=== PATIENT | female | born 1935 | race Caucasian/White ===

== ENCOUNTER 2017-02-21 11:45 | Emergency (ER) | payer MEDICARE ==
[2017-02-21] MEDS ORDERED: Ondansetron 4 MG Tab.DIS PO ONE (12:14)
--- NOTE | 2017-02-21 12:22 | EDM.PDOC ---
ED HPI GENERAL MEDICAL PROBLEM - General Chief Complaint: Head Injury Stated Complaint: FALL Time Seen by Provider: 02/21/17 12:10 Source of Information: Reports: Patient, EMS, Family History Limitations: Reports: No Limitations - History of Present Illness INITIAL COMMENTS - FREE TEXT/NARRATIVE: 81-year-old female was getting out of a chair when she tripped over some oxygen tubing and fell forward hitting her face on a carpeted floor. She was stunned and possibly even lost consciousness for a second or two according to her son. She then was acting "in and out". He called the ambulance after she vomited, she was alert and oriented, stable when EMS arrived but she did have another emesis in route to the hospital. She is not complaining of any pain but just doesn't feel good. She has no external evidence of injury such as abrasion, hematoma or bleeding. She has no complaints of pain of the extremities, neck or back. She is holding an emesis bag because of persistent nausea. Onset: Sudden Duration: Hour(s): (Within the last 1-2 hours) Location: Reports: Head Severity: Moderate Associated Symptoms: Reports: Confusion (Mild), Nausea/Vomiting. 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 Denies: Fever, Chills HEENT: Denies: Vision Change Respiratory: Denies: Shortness of Breath Cardiovascular: Denies: Palpitations, Syncope GI/Abdominal: Reports: Constipation (Intermittent constipation problems), Nausea , Vomiting : Reports: No Symptoms 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: Denies: Neck Pain, Back Pain Skin: Denies: Bruising Neurological: Denies: Headache ED EXAM, HEAD INJURY - Physical Exam Exam: See Below Exam Limited By: No Limitations General Appearance: Alert, No Apparent Distress (Looks uncomfortable because of nausea but not distressed) Head: Atraumatic (I find no evidence of trauma such as abrasion, swelling or hematoma, no direct tender areas) Eyes: Bilateral Eye: EOMI Neck: Non-Tender Respiratory: No Respiratory Distress GI/Abdominal Exam: Soft, Non-Tender Extremities: Normal Inspection Neurologic: No Motor/Sensory Deficits, Oriented x 3 Skin: Normal Color, Warm/Dry - [place] Coma Score Best Eye Response ([place]): (4) Open Spontaneously Best Verbal Response ([place]): (5) Oriented Best Motor Response ([place]): (6) Obeys Commands Course - Vital Signs Last Recorded V/S: Last Vital Signs Temp 96.8 F 02/21/17 12:00 Pulse 62 02/21/17 12:00 Resp 20 02/21/17 12:00 BP 142/69 H 02/21/17 12:00 Pulse Ox 99 02/21/17 12:00 - Orders/Labs/Meds Meds: Medications Discontinued Medications Generic Name Dose Route Start Last Admin Trade Name Lexie PRN Reason Stop Dose Admin Ondansetron HCl 4 mg 02/21/17 12:14 02/21/17 12:17 Zofran Odt PO 02/21/17 12:15 4 mg ONETIME ONE Administration - Re-Assessments/Exams Free Text/Narrative Re-Assessment/Exam: 02/21/17 12:22 4 mg of sublingual Zofran was given, and the patient was sent back for a non- contrast enhanced head CT. 02/21/17 13:[address] was normal. Her nausea slowly improved, she was observed for an additional half hour. 02/21/17 13:19 Patient was able to ambulate with assistance. I encouraged her to use her walker when she is home. Departure - Departure Time of Disposition: 13:30 Disposition: Home, Self-Care 01 Condition: Good Clinical Impression: Concussion with no loss of consciousness - Discharge Information Instructions: Concussion, Adult, [id number] Referrals: Kevin Ravi NP [Primary Care Provider] - Forms: ED Department Discharge Care Plan Goals: Continue your regular medications, no new medications are needed. Increase activity as tolerated and return if worsening or concerns.
--- NOTE | 2017-02-21 12:54 | CT ---
Head wo Cont INDICATION: head injury, vomiting Total DLP 618 COMPARISON: None FINDINGS: No acute intracranial hemorrhage, mass, or edema. Generalized cerebral and cerebellar volum e loss. Patchy low attenuation in the periventricular and subcortical deep white matter is nonspecifi c, but most compatible with chronic small-vessel ischemic changes. Normal variant mild prominence of the paired internal cerebral veins. Remainder unremarkable. IMPRESSION: No acute intracranial abnormality.
== END 2017-02-21 13:34 | disposition home or self-care (01) ==
LOC: JP.ED 11:45
DX: S06.0X0A Concussion without loss of consciousness, initial encounter (principal); Z79.899 Other long term (current) drug therapy; Z79.82 Long term (current) use of aspirin; W01.0XXA Fall on same level from slipping, tripping and stumbling without subsequent striking against object, initial encounter
CPT/HCPCS: 70450; 99284; A9270

== ENCOUNTER 2017-05-15 17:51 | Observation (INO) | payer MEDICARE ==
--- NOTE | 2017-05-15 17:58 | EDM.PDOC ---
<OfficerClovis - Last Filed: 05/15/17 18:17> ED HPI GENERAL MEDICAL PROBLEM - General Chief Complaint: Head Injury Stated Complaint: ACCIDENT VIS NORTH Time Seen by Provider: 05/15/17 17:53 Source of Information: Reports: Patient, RN Notes Reviewed History Limitations: Reports: No Limitations - History of Present Illness INITIAL COMMENTS - FREE TEXT/NARRATIVE: 81-year-old female presents emergency department today following a loss of consciousness at home, she did slip on her deck fell forward hitting her head family member estimates she was unresponsive for approximately 2 minutes brought in by EMS services at this time she is complaining of headache but has a GCS of 15 no other complaints Right Frontal Head Pain Score (Numeric/FACES): 4 - Related Data Allergies Allergy/AdvReac Type Severity Reaction Status Date / Time No Known Allergies Allergy Verified 02/21/17 12:05 Home Meds: Home Meds Anastrozole [Arimidex] 1 mg PO DAILY 02/21/17 [History] Aspirin [Halfprin] 81 mg PO DAILY 02/21/17 [History] Losartan [Cozaar] 50 mg PO DAILY 02/21/17 [History] Metoprolol Succinate [Toprol XL] 50 mg PO DAILY 02/21/17 [History] amLODIPine [Norvasc] 5 mg PO DAILY 02/21/17 [History] Past Medical History HEENT History: Reports: Impaired Vision [employer]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 History: Reports: Fracture Oncologic (Cancer) History: Reports: Breast - Infectious Disease History Infectious Disease History: Reports: Chicken Pox Social & Family History - Tobacco Use Smoking Status *Q: Never Smoker - Caffeine Use Caffeine Use: Reports: Coffee - Recreational Drug Use Recreational Drug Use: No ED ROS GENERAL - Review of Systems Review Of Systems: See Below Constitutional: Reports: No Symptoms HEENT: Reports: No Symptoms Respiratory: Reports: No Symptoms Cardiovascular: Reports: Syncope (Has had some syncope couple weeks ago) GI/Abdominal: Reports: No Symptoms : Reports: No Symptoms 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: Reports: No Symptoms Skin: Reports: No Symptoms Neurological: Reports: Headache ED EXAM, HEAD INJURY - Physical Exam Exam: See Below Text/Narrative:: Primary survey GCS of 15 airway is open patent clear lungs are clear to auscultation bilaterally and cardiovascular demonstrates regular rate and rhythm S1-S2 Secondary survey General: Elderly female, not in any distress, GCS of 15, alert and oriented x3 HEENT: head is ecchymosis and edema appreciated frontal region of the scalp right side approximately size of a golf ball it is tender to the touch normocephalic, eyes pupils equal round reactive to light, sclera clear no conjunctivitis appreciated. Ears tympanic membranes clear and tyler landmarks and light reflex are present bilaterally canals are clear. Nose no septal deviation, nares are clear, no blood present. Mouth mucosa is moist and pink no erythema or exudate noted in soft palate, tongue is midline uvula is midline , dentures in place. Neck: Supple no thyromegaly no tracheal deviation. There is no tenderness to palpation spinally or paraspinally full range of motion neck without tenderness Nodes: Cervical nodes subclavicular nodes nontender no palpable lymphadenopathy noted. Lungs: clear to auscultation bilaterally with symmetrical respirations, no adventitious noise appreciated. CV: Regular rate and rhythm S1 and S2 appreciated no murmurs rubs or gallops noted. Abdomen: Soft, nontender, no palpable masses or organomegaly appreciated, no distention no guarding bowel sounds are present, Neuro: Cranial nerves II through XII grossly intact Skin: Warm and dry, intact Extremities: No lower extremity edema appreciated, pedal pulse is +2. Pelvic rock's is negative there is no tenderness to shoulders elbows wrists bilaterally knees ankles bilaterally. Back exam no tenderness spinally or paraspinally no bruising noted Course - Vital Signs Last Recorded V/S: Last Vital Signs Temp 95.7 F 05/15/17 17:58 Pulse 61 05/15/17 19:27 Resp 16 05/15/17 19:27 BP 153/57 H 05/15/17 19:27 Pulse Ox 100 05/15/17 19:27 - Orders/Labs/Meds Orders: Active Orders 24 hr Category Date Time Status Head wo Cont [CT] Stat Exams 05/15/17 17:54 Taken EKG 12 Lead [EK] Stat Ther 05/15/17 17:54 Stop Req Medication Orders Acetaminophen (Tylenol) 650 mg PO Q4H PRN PRN Reason: Pain (Mild 1-3)/fever Amlodipine Besylate (Norvasc) 5 mg PO DAILY JODRANA Anastrozole (Arimidex) 1 mg PO DAILY JORDANA Aspirin (Halfprin) 81 mg PO DAILY JORDANA Haloperidol Lactate (Haldol) 1 mg IVPUSH Q4H PRN PRN Reason: Agitation Ibuprofen (Motrin) 600 mg PO Q6H PRN PRN Reason: Pain/Fever Losartan Potassium (Cozaar) 50 mg PO DAILY JORDANA Melatonin (Melatonin) 9 mg PO BEDTIME JORDANA Metoprolol Succinate (Toprol Xl) 50 mg PO DAILY JORDANA Ondansetron HCl (Zofran Odt) 4 mg PO Q6H PRN PRN Reason: Nausea able to take PO Polyethylene Glycol (Miralax) 17 gm PO DAILY PRN PRN Reason: Constipation Senna/Docusate Sodium (Senna Plus) 1 tab PO BID PRN PRN Reason: Constipation Labs: Laboratory Tests 05/15/17 05/15/17 Range/Units 18:23 18:23 WBC 6.9 (4.5-11.0) K/uL RBC 3.96 (3.30-5.50) M/uL Hgb 13.4 (12.0-15.0) g/dL Hct 37.6 (36.0-48.0) % MCV 95 (80-98) fL MCH 34 H (27-31) pg MCHC 36 (32-36) % Plt Count 235 (150-400) K/uL Neut % (Auto) 44 (36-66) % Lymph % (Auto) 37 (24-44) % Hughes % (Auto) 10 H (2-6) % Eos % (Auto) 9 H (2-4) % Baso % (Auto) 0 (0-1) % Sodium 136 L (140-148) mmol/L Potassium 3.4 L (3.6-5.2) mmol/L Chloride 99 L (100-108) mmol/L Carbon Dioxide 23 (21-32) mmol/L Anion Gap 17.4 H (5.0-14.0) mmol/L BUN 15 (7-18) mg/dL Creatinine 1.2 H (0.6-1.0) mg/dL Est Cr Clr Drug Dosing 28.09 mL/min Estimated GFR (MDRD) 43 L (>60) Glucose 124 H (74-106) mg/dL Calcium 9.5 (8.5-10.1) mg/dL Meds: Medications Generic Name Dose Route Start Last Admin Trade Name Freq PRN Reason Stop Dose Admin Acetaminophen 650 mg 05/15/17 20:00 Tylenol PO Q4H PRN Pain (Mild 1-3)/fever Amlodipine Besylate 5 mg 05/16/17 09:00 Norvasc PO DAILY [facility] Anastrozole 1 mg 05/16/17 09:00 Arimidex PO DAILY [facility] Aspirin 81 mg 05/16/17 09:00 Halfprin PO DAILY [facility] Haloperidol Lactate 1 mg 05/15/17 20:00 Haldol IVPUSH Q4H PRN Agitation Ibuprofen 600 mg 05/15/17 20:00 Motrin PO Q6H PRN Pain/Fever Losartan Potassium 50 mg 05/16/17 09:00 Cozaar PO DAILY [facility] Melatonin 9 mg 05/15/17 21:00 Melatonin PO BEDTIME [facility] Metoprolol Succinate 50 mg 05/16/17 09:00 Toprol Xl PO DAILY [facility] Ondansetron HCl 4 mg 05/15/17 20:00 Zofran Odt PO Q6H PRN Nausea able to take PO Polyethylene Glycol 17 gm 05/15/17 20:00 Miralax PO DAILY PRN Constipation Senna/Docusate Sodium 1 tab 05/15/17 20:00 Senna Plus PO BID PRN Constipation Discontinued Medications Generic Name Dose Route Start Last Admin Trade Name Freq PRN Reason Stop Dose Admin Potassium Chloride 40 meq 05/15/17 20:00 Klor-Con M20 PO 05/15/17 20:01 ONETIME ONE - Re-Assessments/Exams Free Text/Narrative Re-Assessment/Exam: 05/15/17 18:17 She has returned from CAT scan unfortunately she has had a mental status change GCS is now 13 she is confused and her speech is repeating phrases eyes are closed do not open spontaneously and last prompted by command, still follows commands Departure - Departure Disposition: Admitted As Inpatient 64 Clinical Impression: Concussion injury of brain - Discharge Information <Jamison Corona - Last Filed: 05/15/17 21:03> Course - Orders/Labs/Meds Meds: Medications Generic Name Dose Route Start Last Admin Trade Name Freq PRN Reason Stop Dose Admin Acetaminophen 650 mg 05/15/17 20:00 Tylenol PO Q4H PRN Pain (Mild 1-3)/fever Amlodipine Besylate 5 mg 05/16/17 09:00 Norvasc PO DAILY [facility] Anastrozole 1 mg 05/16/17 09:00 Arimidex PO DAILY [facility] Aspirin 81 mg 05/16/17 09:00 Halfprin PO DAILY JORDANA Haloperidol Lactate 1 mg 05/15/17 20:00 Haldol IVPUSH Q4H PRN Agitation Ibuprofen 600 mg 05/15/17 20:00 Motrin PO Q6H PRN Pain/Fever Losartan Potassium 50 mg 05/16/17 09:00 Cozaar PO DAILY JORDANA Melatonin 9 mg 05/15/17 21:00 Melatonin PO BEDTIME JORDANA Metoprolol Succinate 50 mg 05/16/17 09:00 Toprol Xl PO DAILY JORDANA Ondansetron HCl 4 mg 05/15/17 20:00 Zofran Odt PO Q6H PRN Nausea able to take PO Polyethylene Glycol 17 gm 05/15/17 20:00 Miralax PO DAILY PRN Constipation Senna/Docusate Sodium 1 tab 05/15/17 20:00 Senna Plus PO BID PRN Constipation Discontinued Medications Generic Name Dose Route Start Last Admin Trade Name Freq PRN Reason Stop Dose Admin Potassium Chloride 40 meq 05/15/17 20:00 Klor-Con M20 PO 05/15/17 20:01 ONETIME ONE - Re-Assessments/Exams Free Text/Narrative Re-Assessment/Exam: 05/15/17 18:29 Patient's mental status seems to be waxing and waning but she is still answering questions appropriately. Head CT is negative. I talked with Dr. Rogers of the hospitalist service about watching the patient for concussion symptoms tonight with neuro checks, the family is uncomfortable taking her home. Departure - Departure Time of Disposition: 20:12 Condition: Fair
--- NOTE | 2017-05-15 19:14 | PCM.HP ---
H&P History of Present Illness - General Date of Service: 05/15/17 Admit Problem/Dx: Admission Diagnosis/Problem Admission Diagnosis/Problem Concussion Source of Information: Patient, Family, Provider History Limitations: Reports: Altered Mental Status - History of Present Illness Initial Comments - Free Text/Narative: Liliana presents to the emergency room with her daughter and son-in-law after a fall at home with head trauma. She is unable to provide any history at this point and history is gathered from her daughter. Her daughter reports that she either lost her balance or slipped while trying to climb a few stairs this afternoon and fell landing on all fours. While she was trying to get up she appeared to fall backwards and strike her head on a railing. She was mildly confused after bumping her head but was able to get into the house. When she was inside the house she lost consciousness for approximately 2 minutes. They were able to wake her up with a strong sternal rub. She was complaining of a headache at that time and they brought her in for evaluation. Initially in the emergency room she was talkative and had a [place] Coma Scale of 15. After she returned from her head CT she was confused and did not answer questions appropriately but was able to follow commands. Her [place] Coma Scale had decreased to 13. Family has not noticed anything out of the ordinary recently. No complaints of change in bowel or bladder habits. No recent complaints of cough or shortness of breath. Workup in the emergency room included a normal head CT. She had labs with only mild hypokalemia. Given her confusion and slight decline in the GCS she will be admitted for observation. Right Frontal Head Pain Score (Numeric/FACES): 4 - Related Data Allergies/Adverse Reactions: Allergies Allergy/AdvReac Type Severity Reaction Status Date / Time No Known Allergies Allergy Verified 02/21/17 12:05 Home Medications: Home Meds Anastrozole [Arimidex] 1 mg PO DAILY 02/21/17 [History] Aspirin [Halfprin] 81 mg PO DAILY 02/21/17 [History] Losartan [Cozaar] 50 mg PO DAILY 02/21/17 [History] Metoprolol Succinate [Toprol XL] 50 mg PO DAILY 02/21/17 [History] amLODIPine [Norvasc] 5 mg PO DAILY 02/21/17 [History] Past Medical History HEENT History: Reports: Impaired Vision Cardiovascular History: Reports: 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: Reports: 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 Oncologic (Cancer) History: Reports: Breast - Infectious Disease History Infectious Disease History: Reports: Chicken Pox Social & Family History - Family History Family Medical History: Unobtainable (pt confused) - Tobacco Use Smoking Status *Q: Never Smoker - Caffeine Use Caffeine Use: Reports: Coffee - Alcohol Use Alcohol Use History: No - Recreational Drug Use Recreational Drug Use: No H&P Review of Systems - Review of Systems: Review Of Systems: Unable To Obtain (pt confused and does not answer any questions) Exam - Exam Exam: See Below - Vital Signs Vital Signs: Last Vital Signs Temp 35.4 C 05/15/17 17:58 Pulse 57 L 05/15/17 18:40 Resp 15 05/15/17 18:40 BP 152/59 H 05/15/17 18:40 Pulse Ox 100 05/15/17 18:40 Weight: 61.235 kg - Exam Quality Assessment: No: Supplemental Oxygen General: Alert, Cooperative. No: Oriented, Mild Distress HEENT: Conjunctiva Clear, Mucosa Moist & [place], Other (no evidence for head trauma ). No: Scleral Icterus Neck: Supple, Trachea Midline. No: Lymphadenopathy, JVD, Thyromegaly Lungs: Clear to Auscultation, Normal Respiratory Effort Cardiovascular: Regular Rate, Regular Rhythm. No: Systolic Murmur GI/Abdominal Exam: Normal Bowel Sounds, Soft, Non-Tender, No Distention Back Exam: Normal Inspection. No: Muscle Spasm Extremities: Pedal Edema (mild bilateral ankle edema), Other (no evidence for trauma on arms or legs). No: Increased Warmth Peripheral Pulses: 2+: Dorsalis Pedis (L), Dorsalis Pedis (R) Skin: Warm, Dry Neuro Extensive - Mental Status: Alert, Disorientation to Person, Disorientation to Place, Disorientation to Time, Slow Response to Commands. No : Oriented x3 Neuro Extensive - Motor, Sensory, Reflexes: No: Dysarthria, Abnormal Motor, Tremor Psychiatric: Alert, Agitated (mild) - Patient Data Lab Results Last 24 hrs: Laboratory Results - last 24 hr 05/15/17 05/15/17 Range/Units 18:23 18:23 WBC 6.9 (4.5-11.0) K/uL RBC 3.96 (3.30-5.50) M/uL Hgb 13.4 (12.0-15.0) g/dL Hct 37.6 (36.0-48.0) % MCV 95 (80-98) fL MCH 34 H (27-31) pg MCHC 36 (32-36) % Plt Count 235 (150-400) K/uL Neut % (Auto) 44 (36-66) % Lymph % (Auto) 37 (24-44) % [place] % (Auto) 10 H (2-6) % Eos % (Auto) 9 H (2-4) % Baso % (Auto) 0 (0-1) % Sodium 136 L (140-148) mmol/L Potassium 3.4 L (3.6-5.2) mmol/L Chloride 99 L (100-108) mmol/L Carbon Dioxide 23 (21-32) mmol/L Anion Gap 17.4 H (5.0-14.0) mmol/L BUN 15 (7-18) mg/dL Creatinine 1.2 H (0.6-1.0) mg/dL Est Cr Clr Drug Dosing 28.09 mL/min Estimated GFR (MDRD) 43 L (>60) Glucose 124 H (74-106) mg/dL Calcium 9.5 (8.5-10.1) mg/dL Result Diagrams: 05/15/17 18:23 05/15/17 18:23 Imaging Impressions Last 24 hrs: Head CT - images personally reviewed - no evidence for mass, bleed or skull fracture EKG INTERPRETATION EKG Date: 05/15/17 Rhythm: NSR Rate (Beats/Min): 69 [place]: Normal P-Wave: Present QRS: Normal ST-T: Normal QT: Normal *Q Meaningful Use (ADM) - VTE *Q VTE Criteria *Q: - VTE Risk Assess *Q Each Risk Factor Represents 1 Point: None Total Score 1 Point Risk Factors: 0 Each Risk Factor Represents 2 Points: Malignancy (present or previous) Total Score 2 Point Risk Factors: 2 Each Risk Factor Represents 3 Points: Age 75 Years or Greater Total Score 3 Point Risk Factors: 3 Each Risk Factor Represents 5 Points: None Total Score 5 Point Risk Factors: 0 Venous Thromboembolism Risk Factor Score *Q: 5 - Stroke *Q Stroke Criteria *Q: - AMI *Q AMI Criteria *Q: - Problem List (1) Concussion with loss of consciousness <= 30 min SNOMED Code(s): 559902073 ICD Code: S06.0X1A - CONCUSSION W LOC OF 30 MINUTES OR LESS, INIT Status: Acute Current Visit: Yes Qualifiers: Encounter type: initial encounter Qualified Code(s): S06.0X1A - Concussion with loss of consciousness of 30 minutes or less, initial encounter (2) Hypokalemia SNOMED Code(s): 73465632 ICD Code: E87.6 - HYPOKALEMIA Status: Acute Current Visit: Yes (3) Essential hypertension SNOMED Code(s): 36624776 ICD Code: I10 - ESSENTIAL (PRIMARY) HYPERTENSION Status: Chronic Current Visit: Yes Problem List Initiated/Reviewed/Updated: Yes Orders Last 24hrs: Active Orders 24 hr Category Date Time Status Patient Status Manage Transfer [TRANSFER] Routine ADT 05/15/17 19:04 Ordered EKG Documentation Completion [RC] ASDIRECTED Care 05/15/17 17:54 Active Head wo Cont [CT] Stat Exams 05/15/17 17:54 Taken Resuscitation Status Routine Resus Stat 05/15/17 19:05 Ordered EKG 12 Lead [EK] Stat Ther 05/15/17 17:54 Ordered Assessment/Plan Comment:: ASSESSMENT AND PLAN - Concussion with loss of consciousness less than 30 minutes - moderate head trauma with 2 minute loss of consciousness. Patient was initially oriented and talkative but is now more confused and repeating herself. Head CT unremarkable. Vitals stable. Given the confusion family is concerned about taking her home and overnight observation makes sense. -Neuro checks every 4 hours -Acetaminophen and/or ibuprofen as needed for headache -Physical therapy evaluation in the morning Hypokalemia - mild and will be replaced this evening. -Potassium chloride 40 mEq 1 -Repeat level in the morning Essential hypertension - mild elevation of pressures upon arrival. Has been off amlodipine for 2 days because of difficulty getting refill authorization. -Continue home medications Maintenance issues - - DVT prophylaxis - mechanical - GI prophylaxis - not indicated - Nutrition - regular diet - Carroll catheter - not indicated CODE STATUS - DNR/DNI Admission justification - patient will be referred observation status for monitoring overnight Disposition - anticipate discharge home tomorrow Primary care physician - Kevin Rogers M.D.
[2017-05-15] MEDS ORDERED: Polyethylene Glycol 3350 Powder 17 GM Packet PO PRN (20:00)
[2017-05-15] MEDS ORDERED: Haloperidol Lactate 5 MG/ML SDV IVPUSH PRN (20:00)
[2017-05-15] MEDS ORDERED: Ibuprofen 600 MG Tab PO PRN (20:00)
[2017-05-15] MEDS ORDERED: Ondansetron 4 MG Tab.DIS PO PRN (20:00)
[2017-05-15] MEDS ORDERED: Acetaminophen 325 MG Tab PO PRN (20:00)
[2017-05-15] MEDS ORDERED: Potassium Chloride 20 MEQ Tab.ER PO ONE (20:00)
[2017-05-15] MEDS ORDERED: Melatonin 3 MG Tab PO SCH (21:00)
[2017-05-16] MEDS ORDERED: Metoprolol Succinate 50 MG Tab.ER **OWN MED PO SCH (09:00)
[2017-05-16] MEDS ORDERED: amLODIPine 5 MG Tab PO SCH (09:00)
[2017-05-16] MEDS ORDERED: Anastrozole 1 MG Tab **OWN MED PO SCH (09:00)
[2017-05-16] MEDS ORDERED: Aspirin 81 MG Tab.EC **OWN MED PO SCH (09:00)
--- NOTE | 2017-05-16 09:52 | PCM.DCSUM1 ---
Discharge Summary - Hospital Course Brief History: 81-year-old female with history of essential hypertension and balance difficulties who presented with a fall and resulting head trauma and loss of consciousness. She was admitted for observation with post concussion symptoms. - Discharge Data Discharge Date: 05/16/17 Discharge Disposition: Home, Self-Care 01 Condition: Good - Discharge Diagnosis/Problem(s) (1) Concussion with loss of consciousness <= 30 min SNOMED Code(s): 035772326 ICD Code: S06.0X1A - CONCUSSION W LOC OF 30 MINUTES OR LESS, INIT Status: Acute Qualifiers: Encounter type: initial encounter Qualified Code(s): S06.0X1A - Concussion with loss of consciousness of 30 minutes or less, initial encounter (2) Hypokalemia SNOMED Code(s): 43051818 ICD Code: E87.6 - HYPOKALEMIA Status: Acute (3) Essential hypertension SNOMED Code(s): 89290876 ICD Code: I10 - ESSENTIAL (PRIMARY) HYPERTENSION Status: Chronic - Patient Summary/Data Consults: Consultations 05/16/17 07:00 PT Evaluation and Treatment [CONS] Routine Please Evaluate and Treat. PT Reason for Consult: Ambulation This query below is only for informational purposes and is not editable. Admission Diagnosis/Problem: Concussion Hospital Course: Liliana presented to the emergency room after falling at home and striking her head with a resultant loss of consciousness. Workup in the emergency room was reassuring with a negative head CT and normal labs other than a mild hypokalemia. She was initially conversant and seemed fairly normal but did develop some confusion in the emergency room so she was admitted for observation. Overnight there were no significant abnormalities and the patient cleared appropriately. Vital signs were stable and neuro checks were unremarkable. The morning after admission she seems to be back to her usual self. No obvious deficits with mentation. She was able to get up and go to the bathroom and back without difficulty beyond her baseline. She has no dizziness or headache at this time. I believe she is safe for outpatient management and she is comfortable going home at this time. No additional follow-up is needed unless she develops additional difficulties following hospital discharge. - Patient Instructions Diet: Usual Diet as Tolerated Activity: As Tolerated Showering/Bathing: May Shower Notify Provider of: Increased Pain, Nausea and/or Vomiting Other/Special Instructions: 1. You were in the hospital for observation after a fall with head trauma and concussion with loss of consciousness. Symptoms have resolved overnight. I have provided some information about concussions that you can read after you get home. I would recommend that you take it easy for the next couple of days. 2. Continue your usual medications as prescribed at home. 3. Please seek medical attention if you develop severe headache, visual difficulties, severe loss of balance or persistent vomiting. - Discharge Plan Home Medications: Home Meds Anastrozole [Arimidex] 1 mg PO DAILY 02/21/17 [History] Aspirin [Halfprin] 81 mg PO DAILY 02/21/17 [History] Losartan [Cozaar] 50 mg PO DAILY 02/21/17 [History] Metoprolol Succinate [Toprol XL] 50 mg PO DAILY 02/21/17 [History] amLODIPine [Norvasc] 5 mg PO DAILY 02/21/17 [History] Patient Handouts: Concussion, Adult Referrals: Kevin Ravi, T[facility] [Primary Care Provider] - (Follow-up as needed if symptoms do not continue to improve or if they get worse) - Discharge Summary/Plan Comment DC Time >30 min.: No (25) - Patient Data Vitals - Most Recent: Last Vital Signs Temp 37.1 C 05/16/17 08:00 Pulse 77 05/16/17 08:41 Resp 14 05/16/17 08:00 BP 114/71 05/16/17 08:43 Pulse Ox 98 05/16/17 08:00 Weight - Most Recent: 58.559 kg I&O - Last 24 hours: Intake & Output 05/15/17 05/16/17 05/16/17 22:59 06:59 14:59 Intake Total 320 254 Output Total 375 400 Balance 320 -375 -146 Lab Results - Last 24 hrs: Laboratory Results - last 24 hr 05/16/17 05/16/17 05/16/17 Range/Units 00:02 05:11 05:11 WBC 6.8 (4.5-11.0) K/uL RBC 3.63 (3.30-5.50) M/uL Hgb 12.0 (12.0-15.0) g/dL Hct 35.2 L (36.0-48.0) % MCV 97 (80-98) fL MCH 33 H (27-31) pg MCHC 34 (32-36) % Plt Count 194 (150-400) K/uL Sodium 135 L (140-148) mmol/L Potassium 4.9 (3.6-5.2) mmol/L Chloride 102 (100-108) mmol/L Carbon Dioxide 26 (21-32) mmol/L Anion Gap 11.9 (5.0-14.0) mmol/L BUN 15 (7-18) mg/dL Creatinine 1.0 (0.6-1.0) mg/dL Est Cr Clr Drug Dosing 33.42 mL/min Estimated GFR (MDRD) 53 L (>60) Glucose 96 (74-106) mg/dL Calcium 9.0 (8.5-10.1) mg/dL Urine Color Yellow Urine Appearance Slightly cloudy Urine pH 8.0 (4.5-8.0) Ur Specific [place] 1.015 (1.008-1.030) Urine Protein Negative (NEGATIVE) mg/dL Urine Glucose (UA) Normal (NEGATIVE) mg/dL Urine Ketones Negative (NEGATIVE) mg/dL Urine Occult Blood Negative (NEGATIVE) Urine Nitrite Negative (NEGATIVE) Urine Bilirubin Negative (NEGATIVE) Urine Urobilinogen Normal (NORMAL) mg/dL Ur Leukocyte Esterase Small (NEGATIVE) Urine RBC 0-5 (0-5) Urine WBC 0-5 (0-5) Ur Epithelial Cells Few Amorphous Sediment Rare Urine Bacteria Not seen Urine Mucus Not seen Med Orders - Current: Current Medications Acetaminophen (Tylenol) 650 mg PO Q4H PRN PRN Reason: Pain (Mild 1-3)/fever Amlodipine Besylate (Norvasc) 5 mg PO DAILY [facility] Last Admin: 05/16/17 08:43 Dose: 5 mg Anastrozole (Arimidex) 1 mg PO DAILY [facility] Last Admin: 05/16/17 08:42 Dose: 1 mg Aspirin (Halfprin) 81 mg PO DAILY [facility] Last Admin: 05/16/17 08:42 Dose: 81 mg Haloperidol Lactate (Haldol) 1 mg IVPUSH Q4H PRN PRN Reason: Agitation Ibuprofen (Motrin) 600 mg PO Q6H PRN PRN Reason: Pain/Fever Losartan Potassium (Cozaar) 50 mg PO DAILY [facility] Last Admin: 05/16/17 08:43 Dose: 50 mg Melatonin (Melatonin) 9 mg PO BEDTIME [facility] Last Admin: 05/15/17 21:02 Dose: 9 mg Metoprolol Succinate (Toprol Xl) 50 mg PO DAILY [facility]OR[facility] Last Admin: 05/16/17 08:41 Dose: 50 mg Ondansetron HCl (Zofran Odt) 4 mg PO Q6H PRN PRN Reason: Nausea able to take PO Polyethylene Glycol (Miralax) 17 gm PO DAILY PRN PRN Reason: Constipation Senna/Docusate Sodium (Senna Plus) 1 tab PO BID PRN PRN Reason: Constipation Discontinued Medications Potassium Chloride (Klor-Con M20) 40 meq PO ONETIME ONE Stop: 05/15/17 20:01 Last Admin: 05/15/17 20:56 Dose: 40 meq - Exam Quality Assessment: Denies: Supplemental Oxygen General: Reports: Alert, Oriented, Cooperative, No Acute Distress Neck: Reports: Supple Lungs: Reports: Normal Respiratory Effort Cardiovascular: Reports: Regular Rate, Regular Rhythm GI/Abdominal Exam: No Distention Extremities: No Pedal Edema Psy/Mental Status: Reports: Alert, Normal Affect *Q Meaningful Use (DIS) - VTE *Q VTE Criteria *Q: VTE Pharmacological Contraindications *Q: Risk of Bleeding - Stroke *Q Stroke Criteria *Q: - AMI *Q AMI Criteria *Q:
== END 2017-05-16 10:10 | disposition home or self-care (01) ==
LOC: JP.ED 17:51 → JP.ICU 19:04
PROVIDERS: ADMIT Internal Medicine; ATTEND Internal Medicine
DX: S06.0X1A Concussion with loss of consciousness of 30 minutes or less, initial encounter (principal); I10 Essential (primary) hypertension; E87.6 Hypokalemia; Z79.899 Other long term (current) drug therapy; Z79.82 Long term (current) use of aspirin; W18.30XA Fall on same level, unspecified, initial encounter
CPT/HCPCS: 36415; 70450; 80048; 81001; 85025; 85027; 93005; 99285; A9270; G0378; 93010; 99217; 99220

== ENCOUNTER 2017-09-21 19:20 | Emergency (ER) | payer MEDICARE ==
[2017-09-21] MEDS ORDERED: Ondansetron 4 MG/2 ML SDV IVPUSH ONE (20:11)
--- NOTE | 2017-09-21 20:13 | EDM.PDOC ---
ED HPI GENERAL MEDICAL PROBLEM - General Chief Complaint: Cardiovascular Problem Stated Complaint: MEDICAL Time Seen by Provider: 09/21/17 20:00 Source of Information: Reports: Patient, EMS, Family History Limitations: Reports: No Limitations - History of Present Illness INITIAL COMMENTS - FREE TEXT/NARRATIVE: 82-year-old female brought in by ambulance after a syncopal episode. She has a chronic concerned about constipation, takes prune juice and laxatives and tonight was on the toilet pushing when she became lightheaded and fainted. Her daughter found her on the floor very diaphoretic and pale. EMS found her to be bradycardic and hypotensive. She still feels very dizzy, very lightheaded but no pain. Onset: Sudden Severity: Moderate Associated Symptoms: Reports: Confusion, Nausea/Vomiting, Syncope, Weakness. Denies: Shortness of Breath - Related Data Allergies Allergy/AdvReac Type Severity Reaction Status Date / Time No Known Allergies Allergy Verified 02/21/17 12:05 Home Meds: Home Meds Anastrozole [Arimidex] 1 mg PO DAILY 02/21/17 [History] Aspirin [Halfprin] 81 mg PO DAILY 02/21/17 [History] Losartan [Cozaar] 50 mg PO DAILY 02/21/17 [History] Metoprolol Succinate [Toprol XL] 50 mg PO DAILY 02/21/17 [History] amLODIPine [Norvasc] 5 mg PO DAILY 02/21/17 [History] Isosorbide Mononitrate [Imdur] 30 mg PO DAILY 09/21/17 [History] Past Medical History HEENT History: Reports: Impaired Vision Cardiovascular History: Reports: Hypertension [employer]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 Denies: Fever, Chills HEENT: Reports: No Symptoms Respiratory: Denies: Shortness of Breath Cardiovascular: Denies: Chest Pain GI/Abdominal: Reports: Constipation, Diarrhea, Nausea. Denies: Vomiting : Reports: No Symptoms Skin: Reports: Pallor, Diaphoresis Neurological: Reports: Confusion, Dizziness, Syncope ED EXAM, GENERAL - Physical Exam Exam: See Below Exam Limited By: No Limitations General Appearance: Alert, No Apparent Distress Eye Exam: Bilateral Eye: EOMI, Other (No nystagmus) Throat/Mouth: Normal Inspection Head: Atraumatic Respiratory/Chest: No Respiratory Distress, Lungs Clear Cardiovascular: Regular Rate, Rhythm, Bradycardia GI/Abdominal: Soft, Non-Tender Extremities: No: Pedal Edema Neurological: Alert, Oriented, No Motor/Sensory Deficits Psychiatric: Flat Affect Skin Exam: Warm, Dry Course - Vital Signs Last Recorded V/S: Last Vital Signs Temp 97.2 F 09/21/17 19:46 Pulse 51 L 09/21/17 19:59 Resp 18 09/21/17 19:59 BP 135/49 L 09/21/17 19:59 Pulse Ox 100 09/21/17 19:59 - Orders/Labs/Meds Orders: Active Orders 24 hr Category Date Time Status Head wo Cont [CT] Stat Exams 09/21/17 20:11 Taken Labs: Laboratory Tests 09/21/17 09/21/17 Range/Units 20:11 20:11 WBC 6.0 (4.5-11.0) K/uL RBC 4.18 (3.30-5.50) M/uL Hgb 13.9 (12.0-15.0) g/dL Hct 39.9 (36.0-48.0) % MCV 96 (80-98) fL MCH 33 H (27-31) pg MCHC 35 (32-36) % Plt Count 184 (150-400) K/uL Neut % (Auto) 58 (36-66) % Lymph % (Auto) 26 (24-44) % Mower % (Auto) 11 H (2-6) % Eos % (Auto) 5 H (2-4) % Baso % (Auto) 0 (0-1) % Sodium 136 L (140-148) mmol/L Potassium 3.8 (3.6-5.2) mmol/L Chloride 100 (100-108) mmol/L Carbon Dioxide 23 (21-32) mmol/L Anion Gap 16.8 H (5.0-14.0) mmol/L BUN 21 H (7-18) mg/dL Creatinine 1.4 H (0.6-1.0) mg/dL Est Cr Clr Drug Dosing 22.57 mL/min Estimated GFR (MDRD) 36 L (>60) Glucose 113 H (74-106) mg/dL Calcium 9.5 (8.5-10.1) mg/dL Total Bilirubin 0.6 (0.2-1.0) mg/dL AST 20 (15-37) U/L ALT 23 (12-78) U/L Alkaline Phosphatase 78 (46-116) U/L Total Protein 7.0 (6.4-8.2) g/dL Albumin 3.0 L (3.4-5.0) g/dL Globulin 4.0 H (2.3-3.5) g/dL Albumin/Globulin Ratio 0.8 L (1.2-2.2) Meds: Medications Discontinued Medications Generic Name Dose Route Start Last Admin Trade Name Freq PRN Reason Stop Dose Admin Sodium Chloride 1,000 mls @ 500 mls/hr 09/21/17 20:15 09/21/17 20:15 Normal Saline IV 500 mls/hr ASDIRECTED JORDANA Administration Ondansetron HCl 4 mg 09/21/17 20:11 09/21/17 20:15 Zofran IVPUSH 09/21/17 20:12 4 mg ONETIME ONE Administration - Re-Assessments/Exams Free Text/Narrative Re-Assessment/Exam: 09/21/17 20:39 Patient became nauseated after exam. An IV was started, she was given 500 mL of normal saline an hour along with 4 mg of IV Zofran. CBC and CMP were obtained. 09/21/17 21:08 Over the course of an hour the patient received 500 mL of normal saline, had a normal head CT and reassuring labs. She wanted to go home. With the assistance of the nurses she was ambulated and tolerated it well. I'm going to encourage her to make an appointment with her primary provider to see if one of her four hypertensive medications could be eliminated. Departure - Departure Time of Disposition: 21:25 Disposition: Home, Self-Care 01 Condition: Fair Clinical Impression: Syncope, vasovagal Instructions: Syncope, [id number] Referrals: PCP,None [Primary Care Provider] - Forms: ED Department Discharge Care Plan Goals: Discuss any possible medication changes with your primary provider, stay hydrated and you may want to avoid laxatives for the next several days. - My Orders Last 24 Hours: My Active Orders 09/21/17 20:11 Head wo Cont [CT] Stat - Assessment/Plan Last 24 Hours: My Active Orders 09/21/17 20:11 Head wo Cont [CT] Stat
[2017-09-21] MEDS ORDERED: Sodium Chloride 0.9% 1,000 ML IV SCH (20:15)
== END 2017-09-21 21:25 | disposition home or self-care (01) ==
LOC: JP.ED 19:20
DX: R55 Syncope and collapse (principal); I10 Essential (primary) hypertension; Z79.82 Long term (current) use of aspirin; Z79.899 Other long term (current) drug therapy
CPT/HCPCS: 36415; 70450; 80053; 85025; 96361; 96374; 99284; J2405; J7030

== ENCOUNTER 2018-01-01 19:22 | Observation (INO) | payer MEDICARE ==
[2018-01-01] MEDS ORDERED: Ondansetron 4 MG/2 ML SDV IVPUSH ONE (19:43)
[2018-01-01] MEDS ORDERED: Sodium Chloride 0.9% 1,000 ML IV SCH (20:00)
--- NOTE | 2018-01-01 20:33 | EDM.PDOC ---
ED HPI GENERAL MEDICAL PROBLEM - General Chief Complaint: Syncope Stated Complaint: MEDICAL [facility]IA [place] Time Seen by Provider: 01/01/18 20:22 Source of Information: Reports: Patient, EMS, Family History Limitations: Reports: Physical Impairment - History of Present Illness INITIAL COMMENTS - FREE TEXT/NARRATIVE: This lady arrived by EMS after an episode of apparent syncope and falling at home. She had taken her night time meds already and was in the kitchen when her daughter heard her fall. She found her sitting up and leaning back against a cabinet. She also lacerated her left forearm. She's had multiple episodes of falling and syncope. She had a Holter monitor about a month ago but they never heard the results. Noted that she takes Metoprolol. The last episode she did have some mild bradycardia according to the ER note but was not hypotensive. EMS told the nurse that the patient's systolic BP on arrival tonight was in 80' s. She complains of nausea. No chest pain or sob. No other symptoms. - Related Data Allergies Allergy/AdvReac Type Severity Reaction Status Date / Time No Known Allergies Allergy Verified 01/01/18 19:30 Home Meds: Home Meds Anastrozole [Arimidex] 1 mg PO DAILY 02/21/17 [History] Aspirin [Halfprin] 81 mg PO DAILY 02/21/17 [History] Losartan [Cozaar] 50 mg PO DAILY 02/21/17 [History] Metoprolol Succinate [Toprol XL] 50 mg PO DAILY 02/21/17 [History] amLODIPine [Norvasc] 2.5 mg PO DAILY 02/21/17 [History] Isosorbide Mononitrate [Imdur] 30 mg PO DAILY 09/21/17 [History] Cetirizine HCl [Zyrtec] 10 mg PO DAILY PRN 01/01/18 [History] Past Medical History HEENT History: Reports: Glaucoma, Impaired Vision Cardiovascular History: Reports: Arrhythmia, Hypertension, Syncope [employer]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 Oncologic (Cancer) History: Reports: Breast - Infectious Disease History Infectious Disease History: Reports: Chicken Pox - Past Surgical History HEENT Surgical History: Reports: Eye Surgery Female Surgical History: Reports: Breast Biopsy, Hysterectomy, Other (See Below) Other Female Surgeries/Procedures: partial mastectomy Oncologic Surgical History: Reports: Lumpectomy Social & Family History - Family History Family Medical History: Unobtainable - Tobacco Use Smoking Status *Q: Never Smoker Second Hand Smoke Exposure: No - Caffeine Use Caffeine Use: Reports: Coffee - Recreational Drug Use Recreational Drug Use: No ED ROS GENERAL - Review of Systems Review Of Systems: See Below Constitutional: Reports: Other (see hpi) HEENT: Reports: No Symptoms Respiratory: Reports: No Symptoms Cardiovascular: Reports: No Symptoms Endocrine: Reports: No Symptoms GI/Abdominal: Reports: Nausea, Vomiting : Reports: No Symptoms 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: Reports: No Symptoms Skin: Reports: Other (laceration) Neurological: Reports: Syncope Psychiatric: Reports: No Symptoms Hematologic/Lymphatic: Reports: No Symptoms - Physical Exam Exam: See Below Exam Limited By: No Limitations General Appearance: Lethargic, Moderate Distress, Other (Holding an emesis bag. Some dry heaves. HR in mid 40's. BP about 100 syst.) Eye Exam: Bilateral Eye: Normal Inspection Throat/Mouth: Normal Inspection, Other (moist membranes) Head Exam: Atraumatic. No: Scalp Lacerations, Scalp Swelling, Scalp Abrasions, Scalp Ecchymosis, Scalp Hematoma, Scalp Tenderness Neck: Supple, Non-Tender Respiratory/Chest: Lungs Clear Cardiovascular: Regular Rate, Rhythm, No Murmur, Bradycardia GI/Abdominal: Soft, Non-Tender Neuro Exam (Abbreviated): CN II-XII Intact, No Motor/Sensory Deficits, Other ( Initially lethergic but later more alert after fluid bolus) Back Exam: Normal Inspection Extremities: Other (Irregular laceration about 10 cm long. Upper left forearm, ulnar surface.) Skin Exam: Other (see above) Course - Vital Signs Last Recorded V/S: Last Vital Signs Temp 36.6 C 01/01/18 19:25 Pulse 43 L 01/01/18 20:28 Resp 16 01/01/18 20:28 BP 159/54 H 01/01/18 20:28 Pulse Ox 99 01/01/18 20:28 - Orders/Labs/Meds Orders: Active Orders 24 hr Category Date Time Status EKG Documentation Completion [RC] ASDIRECTED Care 01/01/18 19:55 Active Chest 1V Frontal [CR] Urgent Exams 01/01/18 19:54 Taken COMPREHENSIVE METABOLIC PN,CMP [CHEM] Urgent Lab 01/01/18 20:09 Received TROPONIN I [CHEM] Urgent Lab 01/01/18 20:09 Received UA W/MICROSCOPIC [URIN] Urgent Lab 01/01/18 19:54 Ordered Sodium Chloride 0.9% [Normal Saline] 1,000 ml Med 01/01/18 20:00 Active IV ASDIRECTED EKG 12 Lead [EK] Urgent Ther 01/01/18 19:54 Ordered Medication Orders Sodium Chloride (Normal Saline) 1,000 mls @ 999 mls/hr IV ASDIRECTED JORDANA Last Admin: 01/01/18 19:35 Dose: 999 mls/hr Labs: Laboratory Tests 01/01/18 Range/Units 20:09 WBC 5.2 (4.5-11.0) K/uL RBC 3.85 (3.30-5.50) M/uL Hgb 12.9 (12.0-15.0) g/dL Hct 36.4 (36.0-48.0) % MCV 95 (80-98) fL MCH 34 H (27-31) pg MCHC 35 (32-36) % Plt Count 215 (150-400) K/uL Neut % (Auto) 53 (36-66) % Lymph % (Auto) 27 (24-44) % [place] % (Auto) 12 H (2-6) % Eos % (Auto) 7 H (2-4) % Baso % (Auto) 0 (0-1) % Meds: Medications Generic Name Dose Route Start Last Admin Trade Name Freq PRN Reason Stop Dose Admin Sodium Chloride 1,000 mls @ 999 mls/hr 01/01/18 20:00 01/01/18 19:35 Normal Saline IV 999 mls/hr ASDIRECTED JORDANA Administration Discontinued Medications Generic Name Dose Route Start Last Admin Trade Name Freq PRN Reason Stop Dose Admin Ondansetron HCl 4 mg 01/01/18 19:43 01/01/18 19:47 Zofran IVPUSH 01/01/18 19:44 4 mg ONETIME ONE Administration - Re-Assessments/Exams Free Text/Narrative Re-Assessment/Exam: 01/01/18 20:52 Wound to left forearm lavaged copiously with large syringe and NS. Dr Ji examined and will suture in am. Dressing applied. When patient's BP increased and she was more alert fluid bolus dc'd. Discussed with Ayleen Miller NP. She will admit. 01/01/18 20:54 EKD shows sinus ricki at 46. LVH. No ischemia. Departure - Departure Time of Disposition: 20:54 Disposition: Admitted As Inpatient 64 Condition: Fair Clinical Impression: Symptomatic sinus bradycardia, Laceration of left forearm - Discharge Information Referrals: PCP,None [Primary Care Provider] - Forms: ED Department Discharge - My Orders Last 24 Hours: My Active Orders 01/01/18 19:54 Chest 1V Frontal [CR] Urgent UA W/MICROSCOPIC [URIN] Urgent EKG 12 Lead [EK] Urgent 01/01/18 19:55 EKG Documentation Completion [RC] ASDIRECTED 01/01/18 20:00 Sodium Chloride 0.9% [Normal Saline] 1,000 ml IV ASDIRECTED 01/01/18 20:09 COMPREHENSIVE METABOLIC PN,CMP [CHEM] Urgent TROPONIN I [CHEM] Urgent - Assessment/Plan Last 24 Hours: My Active Orders 01/01/18 19:54 Chest 1V Frontal [CR] Urgent UA W/MICROSCOPIC [URIN] Urgent EKG 12 Lead [EK] Urgent 01/01/18 19:55 EKG Documentation Completion [RC] ASDIRECTED 01/01/18 20:00 Sodium Chloride 0.9% [Normal Saline] 1,000 ml IV ASDIRECTED 01/01/18 20:09 COMPREHENSIVE METABOLIC PN,CMP [CHEM] Urgent TROPONIN I [CHEM] Urgent
--- NOTE | 2018-01-01 22:09 | PCM.HP ---
H&P History of Present Illness - General Date of Service: 01/01/18 Admit Problem/Dx: Admission Diagnosis/Problem Admission Diagnosis/Problem Symptomatic sinus bradycardia Source of Information: Patient, EMS, Provider, RN History Limitations: Reports: No Limitations - History of Present Illness Initial Comments - Free Text/Narative: This lady arrived by EMS after an episode of apparent syncope and falling at home. She had taken her night time meds already and was in the kitchen when her daughter heard her fall. She found her sitting up and leaning back against a cabinet. She also lacerated her left forearm. She's had multiple episodes of falling and syncope. She had a Holter monitor about a month ago but they never heard the results. Noted that she takes Metoprolol. The last episode she did have some mild bradycardia according to the ER note but was not hypotensive. EMS told the nurse that the patient's systolic BP on arrival tonight was in 80' s. She complains of nausea. No chest pain or sob. No other symptoms. 01/01/18 20:52 Wound to left forearm lavaged copiously with large syringe and NS. Dr Ji examined and will suture in am. Dressing applied. When patient's BP increased and she was more alert fluid bolus dc'd. 01/01/18 20:54 EKD shows sinus ricki at 46. LVH. No ischemia. plan admit to hospital. Onset of Symptoms: Reports: Sudden Duration of Symptoms: Reports: Hour(s):, Waxing/Waning Location: Reports: Face (right eyebrow with redness), Upper Extremity, Left ( laceration to forearm) Quality: Reports: Same as Previous Episode (Mrs. Dowling reports felt faint while sitting in chair, got up and fainted) Improves with: Reports: Rest Worsens with: Reports: Movement Context: Reports: Other (fall at home) Associated Symptoms: Reports: Nausea/Vomiting, Syncope, Other (left forearm injury) - Related Data Allergies/Adverse Reactions: Allergies Allergy/AdvReac Type Severity Reaction Status Date / Time No Known Allergies Allergy Verified 01/01/18 19:30 Home Medications: Home Meds Anastrozole [Arimidex] 1 mg PO DAILY 02/21/17 [History] Aspirin [Halfprin] 81 mg PO DAILY 02/21/17 [History] Losartan [Cozaar] 50 mg PO DAILY 02/21/17 [History] Metoprolol Succinate [Toprol XL] 50 mg PO DAILY 02/21/17 [History] amLODIPine [Norvasc] 2.5 mg PO DAILY 02/21/17 [History] Isosorbide Mononitrate [Imdur] 30 mg PO DAILY 09/21/17 [History] Cetirizine HCl [Zyrtec] 10 mg PO DAILY PRN 01/01/18 [History] Past Medical History HEENT History: Reports: Glaucoma, Impaired Vision Cardiovascular History: Reports: Arrhythmia, Hypertension, Syncope [employer] SAL[employer] History: Reports: 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 History: Reports: Fracture Oncologic (Cancer) History: Reports: Breast - Infectious Disease History Infectious Disease History: Reports: Chicken Pox - Past Surgical History HEENT Surgical History: Reports: Eye Surgery Female Surgical History: Reports: Breast Biopsy, Hysterectomy, Other (See Below) Other Female Surgeries/Procedures: partial mastectomy Oncologic Surgical History: Reports: Lumpectomy Social & Family History - Family History Family Medical History: Unobtainable - Tobacco Use Smoking Status *Q: Never Smoker Second Hand Smoke Exposure: No - Caffeine Use Caffeine Use: Reports: Coffee - Recreational Drug Use Recreational Drug Use: No - Living Situation & Occupation Living situation: Reports: , with Family ( two years ago, now living with only child, son and his family in [place], [place].) Occupation: Disabled H&P Review of Systems - Review of Systems: Review Of Systems: See Below General: Reports: Weakness, Fatigue HEENT: Reports: Glasses, Other (dentures) Pulmonary: Reports: No Symptoms Cardiovascular: Reports: Syncope Gastrointestinal: Reports: No Symptoms, Other (last bowel movement this morning) 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: Reports: Arm Pain Skin: Reports: Wound (10 cm laceration to left forearm from syncope event) Psychiatric: Reports: Other (grief, reports misses her terribly, ready to be with him.) Neurological: Reports: Syncope, Weakness Hematologic/Lymphatic: Reports: No Symptoms Immunologic: Reports: No Symptoms Exam - Exam Exam: See Below - Vital Signs Vital Signs: Last Vital Signs Temp 36.6 C 01/01/18 19:25 Pulse 63 01/01/18 21:51 Resp 10 L 01/01/18 21:51 BP 157/62 H 01/01/18 21:51 Pulse Ox 98 01/01/18 21:51 Weight: 58.967 kg - Exam Quality Assessment: Other (left forearm in bandage) General: Alert, Oriented, 4 HEENT: PERRLA, Hearing Intact, Mucosa Moist & [place], Nares Patent, Normal Nasal Septum, Posterior Pharynx Clear, Conjunctiva Clear, EOMI, EACs Clear, TMs Clear Neck: Supple, Trachea Midline, 2 Lungs: Clear to Auscultation, Normal Respiratory Effort Cardiovascular: Regular Rate, Regular Rhythm, Normal S1, Normal S2, Bradycardia GI/Abdominal Exam: Normal Bowel Sounds, Soft, Non-Tender, No Organomegaly, No Distention (Female) Exam: Deferred Rectal (Female) Exam: Deferred Back Exam: Normal Inspection, Full Range of Motion, NT Extremities: Normal Range of Motion, Non-Tender, No Pedal Edema, Normal Capillary Refill, Other ((Irregular laceration about 10 cm long. Upper left forearm, ulnar surface.)) Peripheral Pulses: 2+: Radial (L), Radial (R) Skin: Warm, Dry, Wound (10 cm laceration noted to left forearm, bandaged.) Neurological: Reflexes Equal Bilateral, Strength Equal Bilateral, Normal Speech , Normal Tone - Patient Data Lab Results Last 24 hrs: Laboratory Results - last 24 hr 01/01/18 01/01/18 Range/Units 20:09 20:09 WBC 5.2 (4.5-11.0) K/uL RBC 3.85 (3.30-5.50) M/uL Hgb 12.9 (12.0-15.0) g/dL Hct 36.4 (36.0-48.0) % MCV 95 (80-98) fL MCH 34 H (27-31) pg MCHC 35 (32-36) % Plt Count 215 (150-400) K/uL Neut % (Auto) 53 (36-66) % Lymph % (Auto) 27 (24-44) % [place] % (Auto) 12 H (2-6) % Eos % (Auto) 7 H (2-4) % Baso % (Auto) 0 (0-1) % Sodium 133 L (140-148) mmol/L Potassium 4.6 (3.6-5.2) mmol/L Chloride 100 (100-108) mmol/L Carbon Dioxide 25 (21-32) mmol/L Anion Gap 12.6 (5.0-14.0) mmol/L BUN 14 (7-18) mg/dL Creatinine 1.2 H (0.6-1.0) mg/dL Est Cr Clr Drug Dosing 28.87 mL/min Estimated GFR (MDRD) 43 L (>60) Glucose 117 H (74-106) mg/dL Calcium 8.6 (8.5-10.1) mg/dL Total Bilirubin 0.3 (0.2-1.0) mg/dL AST 17 (15-37) U/L ALT 17 (12-78) U/L Alkaline Phosphatase 71 (46-116) U/L Troponin I < 0.017 (0.000-0.056) ng/mL Total Protein 6.0 L (6.4-8.2) g/dL Albumin 3.1 L (3.4-5.0) g/dL Globulin 2.9 (2.3-3.5) g/dL Albumin/Globulin Ratio 1.1 L (1.2-2.2) Result Diagrams: 01/01/18 20:09 01/01/18 20:09 - Problem List (1) Laceration of left forearm SNOMED Code(s): 50439606883902224 ICD Code: S51.812A - LACERATION WITHOUT FOREIGN BODY OF LEFT FOREARM, INIT ENCNTR Status: Acute Priority: High Current Visit: Yes Qualifiers: Encounter type: initial encounter Qualified Code(s): S51.812A - Laceration without foreign body of left forearm, initial encounter (2) Symptomatic sinus bradycardia SNOMED Code(s): 530196763 ICD Code: R00.1 - BRADYCARDIA, UNSPECIFIED Status: Acute Priority: High Current Visit: Yes Problem List Initiated/Reviewed/Updated: Yes Orders Last 24hrs: Active Orders 24 hr Category Date Time Status Patient Status Manage Transfer [TRANSFER] Routine ADT 01/01/18 21:57 Ordered EKG Documentation Completion [RC] ASDIRECTED Care 01/01/18 19:55 Active Chest 1V Frontal [CR] Urgent Exams 01/01/18 19:54 Taken UA W/MICROSCOPIC [URIN] Urgent Lab 01/01/18 19:54 Ordered Sodium Chloride 0.9% [Normal Saline] 1,000 ml Med 01/01/18 20:00 Active IV ASDIRECTED Resuscitation Status Routine Resus Stat 01/01/18 21:59 Ordered EKG 12 Lead [EK] Urgent Ther 01/01/18 19:54 Ordered Medication Orders Sodium Chloride (Normal Saline) 1,000 mls @ 999 mls/hr IV ASDIRECTED [facility] Last Admin: 01/01/18 19:35 Dose: 999 mls/hr Assessment/Plan Comment:: ASSESSMENT / PLAN This lady arrived by EMS after an episode of apparent syncope and falling at home. She had taken her night time meds already and was in the kitchen when her daughter heard her fall. She found her sitting up and leaning back against a cabinet. She also lacerated her left forearm. She's had multiple episodes of falling and syncope. She had a Holter monitor about a month ago but they never heard the results. Noted that she takes Metoprolol. The last episode she did have some mild bradycardia according to the ER note but was not hypotensive. EMS told the nurse that the patient's systolic BP on arrival tonight was in 80' s. She complains of nausea. No chest pain or sob. No other symptoms. 01/01/18 20:52 Wound to left forearm lavaged copiously with large syringe and NS. Dr Ji examined and will suture in am. Dressing applied. When patient's BP increased and she was more alert fluid bolus dc'd. 01/01/18 20:54 EKD shows sinus ricki at 46. LVH. No ischemia. plan admit to hospital. Plan -Admit Observation ICU Med-Surg overflow for further monitoring Symptomatic sinus bradycardia syncope -Hold Metoprolol, give other cardiovascular medications as scheduled -IV fluids Normal Saline at 125ml/hr -telemetry -Advise to notify nurses of any fever, chills, worsen pain or other symptoms -And a.m. labs: CBC, BMP. Laceration left forearm - evaluated in ER, will do surgery in am -NPO after midnight -keep in bandage Maintenance issues -Orders home meds: hold Metoprolol -Nutrition: NPO after midnight -Carroll catheter not indicated at this time -DVT: SCD, surgery in am -GI Prophalaxis; IV Protonix 40mg daily CODE STATUS: DNR-DNI Admission status: Admit to Observation -I expect this patient to stay less than 24 hours, not to exceed 96 hours for evaluation and management of this problem. Disposition: home with family Primary care provider: [facility] Est[facility] Hospitalist: Dr. Pickett
[2018-01-01] MEDS ORDERED: Ondansetron 4 MG/2 ML SDV IV PRN (22:18)
[2018-01-01] MEDS ORDERED: Albuterol 0.083% 2.5 MG/3 ML Neb Soln NEB PRN (22:18)
[2018-01-01] MEDS ORDERED: Morphine 2 MG/ML Syringe IVPUSH PRN (22:18)
[2018-01-01] MEDS ORDERED: LORazepam 2 MG/ML SDV IV PRN (22:18)
[2018-01-01] MEDS ORDERED: Ondansetron 4 MG Tab.DIS PO PRN (22:18)
[2018-01-01] MEDS ORDERED: Docusate Sodium 100 MG Cap PO PRN (22:18)
[2018-01-01] MEDS ORDERED: oxyCODONE 5 MG Tab PO PRN (22:18)
[2018-01-01] MEDS ORDERED: Bisacodyl 5 MG Tab PO PRN (22:18)
[2018-01-01] MEDS: Sodium Chloride 0.9% 1,000 ML IV SCH (22:56)
[2018-01-01] MEDS: Melatonin 3 MG Tab PO PRN (23:22)
[2018-01-01] MEDS: Acetaminophen 325 MG Tab PO PRN (23:23)
[2018-01-02] MEDS: Sodium Chloride 0.9% 1,000 ML IV SCH (05:37)
[2018-01-02] MEDS ORDERED: ceFAZolin 2 GM in Premix Bag 1 BAG IV ONE ×2 (06:44→08:00)
[2018-01-02] MEDS ORDERED: Bupivacaine 0.5% 50 ML MDV ONE (06:49)
[2018-01-02] MEDS ORDERED: Lidocaine 1% with EPINEPHrine 1:100,000 50 ML MDV ONE (06:49)
[2018-01-02] MEDS ORDERED: Propofol 200 MG/20 ML SDV ONE (08:41)
[2018-01-02] MEDS ORDERED: fentaNYL 100 MCG/2 ML SDV ONE (08:42)
[2018-01-02] MEDS ORDERED: Linezolid 200 MG/100 ML Bag IRR ONE (09:00)
[2018-01-02] MEDS ORDERED: amLODIPine 5 MG Tab (PTOM) PO SCH (09:00)
[2018-01-02] MEDS ORDERED: LOSARTAN 50 MG PO SCH (09:00)
[2018-01-02] MEDS ORDERED: Metoprolol Tartrate 25 MG Tab PO SCH (11:00)
[2018-01-02] MEDS: ANASTROZOLE 1 MG PO SCH (11:06)
[2018-01-02] MEDS: Isosorbide Mononitrate 30 MG Tab.ER (PTOM) PO SCH (11:07)
[2018-01-02] MEDS: Pantoprazole 40 MG Vial IVPUSH SCH (11:16)
--- NOTE | 2018-01-02 14:30 | PCM.PN ---
- General Info Date of Service: 01/02/18 Subjective Update: This patient is an 82-year-old woman who was admitted through the emergency room last night after she experienced a syncopal episode at home resulting in a laceration of her left forearm. Family reports that she's had a history of at least 5 episodes of syncope over the last year. She has been in the emergency department following episodes and at that time has been noted to have lower heart rates. After she arrived at the emergency department last night, heart rate was noted to be in the 40s on initial evaluation. She was admitted to the hospital and given IV fluids for hydration. During the night had no further episodes of bradycardia, her metoprolol was initially held this morning. Laceration was repaired by Dr. Ji earlier this morning in the arm is currently bandaged. Initial plan had been for discharge to home today but after she took a lower dose of metoprolol late morning she experienced another episode of bradycardia with symptoms of weakness lightheadedness and nausea with vomiting. - Review of Systems General: Reports: Weakness Pulmonary: Reports: No Symptoms Cardiovascular: Reports: Lightheadedness. Denies: Chest Pain, Dyspnea on Exertion, Orthopnea, Edema Gastrointestinal: Reports: No Symptoms - Patient Data Vitals - Most Recent: Last Vital Signs Temp 98.1 F 01/02/18 10:00 Pulse 47 L 01/02/18 12:47 Resp 10 L 01/02/18 12:47 BP 110/53 L 01/02/18 12:47 Pulse Ox 94 L 01/02/18 12:47 Weight - Most Recent: 137 lb I&O - Last 24 Hours: Intake & Output 01/01/18 01/02/18 01/02/18 22:59 06:59 14:59 Intake Total 881 Output Total 1500 500 Balance -619 -500 Lab Results Last 24 Hours: Laboratory Results - last 24 hr 01/01/18 01/01/18 01/01/18 Range/Units 20:09 20:09 22:41 WBC 5.2 (4.5-11.0) K/uL RBC 3.85 (3.30-5.50) M/uL Hgb 12.9 (12.0-15.0) g/dL Hct 36.4 (36.0-48.0) % MCV 95 (80-98) fL MCH 34 H (27-31) pg MCHC 35 (32-36) % Plt Count 215 (150-400) K/uL Neut % (Auto) 53 (36-66) % Lymph % (Auto) 27 (24-44) % [place] % (Auto) 12 H (2-6) % Eos % (Auto) 7 H (2-4) % Baso % (Auto) 0 (0-1) % Sodium 133 L (140-148) mmol/L Potassium 4.6 (3.6-5.2) mmol/L Chloride 100 (100-108) mmol/L Carbon Dioxide 25 (21-32) mmol/L Anion Gap 12.6 (5.0-14.0) mmol/L BUN 14 (7-18) mg/dL Creatinine 1.2 H (0.6-1.0) mg/dL Est Cr Clr Drug Dosing 28.87 mL/min Estimated GFR (MDRD) 43 L (>60) Glucose 117 H (74-106) mg/dL Calcium 8.6 (8.5-10.1) mg/dL Total Bilirubin 0.3 (0.2-1.0) mg/dL AST 17 (15-37) U/L ALT 17 (12-78) U/L Alkaline Phosphatase 71 (46-116) U/L Troponin I < 0.017 (0.000-0.056) ng/mL Total Protein 6.0 L (6.4-8.2) g/dL Albumin 3.1 L (3.4-5.0) g/dL Globulin 2.9 (2.3-3.5) g/dL Albumin/Globulin Ratio 1.1 L (1.2-2.2) Urine Color Yellow Urine Appearance Clear Urine pH 8.0 (4.5-8.0) Ur Specific [place] 1.015 (1.008-1.030) Urine Protein Negative (NEGATIVE) mg/dL Urine Glucose (UA) Normal (NEGATIVE) mg/dL Urine Ketones Negative (NEGATIVE) mg/dL Urine Occult Blood Negative (NEGATIVE) Urine Nitrite Negative (NEGATIVE) Urine Bilirubin Negative (NEGATIVE) Urine Urobilinogen Normal (NORMAL) mg/dL Ur Leukocyte Esterase Negative (NEGATIVE) Urine RBC 0-5 (0-5) Urine WBC 5-10 H (0-5) Ur Epithelial Cells Few Amorphous Sediment Not seen Urine Bacteria Few Urine Mucus Not seen 01/02/18 01/02/18 Range/Units 04:45 04:45 WBC 9.9 (4.5-11.0) K/uL RBC 4.16 (3.30-5.50) M/uL Hgb 13.9 (12.0-15.0) g/dL Hct 39.7 (36.0-48.0) % MCV 95 (80-98) fL MCH 33 H (27-31) pg MCHC 35 (32-36) % Plt Count 205 (150-400) K/uL Neut % (Auto) 76 H (36-66) % Lymph % (Auto) 14 L (24-44) % [place] % (Auto) 9 H (2-6) % Eos % (Auto) 1 L (2-4) % Baso % (Auto) 0 (0-1) % Sodium 135 L (140-148) mmol/L Potassium 4.3 (3.6-5.2) mmol/L Chloride 100 (100-108) mmol/L Carbon Dioxide 26 (21-32) mmol/L Anion Gap 13.3 (5.0-14.0) mmol/L BUN 14 (7-18) mg/dL Creatinine 1.1 H (0.6-1.0) mg/dL Est Cr Clr Drug Dosing 31.49 mL/min Estimated GFR (MDRD) 47 L (>60) Glucose 98 (74-106) mg/dL Calcium 8.8 (8.5-10.1) mg/dL Total Bilirubin (0.2-1.0) mg/dL AST (15-37) U/L ALT (12-78) U/L Alkaline Phosphatase (46-116) U/L Troponin I (0.000-0.056) ng/mL Total Protein (6.4-8.2) g/dL Albumin (3.4-5.0) g/dL Globulin (2.3-3.5) g/dL Albumin/Globulin Ratio (1.2-2.2) Urine Color Urine Appearance Urine pH (4.5-8.0) Ur Specific [place] (1.008-1.030) Urine Protein (NEGATIVE) mg/dL Urine Glucose (UA) (NEGATIVE) mg/dL Urine Ketones (NEGATIVE) mg/dL Urine Occult Blood (NEGATIVE) Urine Nitrite (NEGATIVE) Urine Bilirubin (NEGATIVE) Urine Urobilinogen (NORMAL) mg/dL Ur Leukocyte Esterase (NEGATIVE) Urine RBC (0-5) Urine WBC (0-5) Ur Epithelial Cells Amorphous Sediment Urine Bacteria Urine Mucus Med Orders - Current: Current Medications Acetaminophen (Tylenol) 650 mg PO Q4H PRN PRN Reason: Pain (Mild 1-3)/fever Last Admin: 01/01/18 23:23 Dose: 650 mg Albuterol (Proventil Neb Soln) 2.5 mg NEB Q4H PRN PRN Reason: Shortness Of Breath/wheezing Anastrozole (Arimidex) 1 mg PO DAILY [facility] Last Admin: 01/02/18 11:06 Dose: 1 mg Bisacodyl (Dulcolax) 5 mg PO DAILY PRN PRN Reason: Constipation Docusate Sodium (Colace) 100 mg PO BID PRN PRN Reason: Constipation Cefazolin Sodium/Dextrose 1 gm (/ Premix) 50 mls @ 100 mls/hr IV Q8H [facility] Isosorbide Mononitrate (Imdur) 30 mg PO DAILY [facility] Last Admin: 01/02/18 11:07 Dose: 30 mg Lorazepam (Ativan) 1 mg IV Q6H PRN PRN Reason: Nausea/Vomiting Losartan Potassium (Cozaar) 50 mg PO DAILY [facility] Last Admin: 01/02/18 11:09 Dose: 50 mg Melatonin (Melatonin) 6 mg PO BEDTIME PRN PRN Reason: Insomnia Last Admin: 01/01/18 23:22 Dose: 6 mg Morphine Sulfate (Morphine) 2 mg IVPUSH Q2H PRN PRN Reason: Pain (severe 7-10) Ondansetron HCl (Zofran Odt) 4 mg PO Q6H PRN PRN Reason: Nausea able to take PO Ondansetron HCl (Zofran) 4 mg IV Q4H PRN PRN Reason: Nausea/Vomiting Last Admin: 01/02/18 12:33 Dose: 4 mg Oxycodone HCl (Oxycodone) 5 mg PO Q4H PRN PRN Reason: Pain (moderate 4-6) Pantoprazole Sodium (Protonix Iv) 40 mg IVPUSH DAILY [facility] Last Admin: 01/02/18 11:16 Dose: 40 mg Discontinued Medications Amlodipine Besylate (Norvasc) 2.5 mg PO DAILY [facility] Last Admin: 01/02/18 11:11 Dose: 2.5 mg Bupivacaine HCl (Marcaine 0.5%) Confirm Administered Dose 50 ml .ROUTE .STK-MED ONE Stop: 01/02/18 06:50 Last Admin: 01/02/18 08:58 Dose: 5 ml Fentanyl (Sublimaze) Confirm Administered Dose 100 mcg .ROUTE .STK-MED ONE Stop: 01/02/18 08:43 Sodium Chloride (Normal Saline) 1,000 mls @ 999 mls/hr IV ASDIRECTED [facility] Last Admin: 01/01/18 19:35 Dose: 999 mls/hr Sodium Chloride (Normal Saline) 1,000 mls @ 125 mls/hr IV ASDIRECTED [facility] Last Admin: 01/02/18 05:37 Dose: 125 mls/hr Cefazolin Sodium/Dextrose 2 gm (/ Premix) 50 mls @ 100 mls/hr IV ONETIME ONE Stop: 01/02/18 08:29 Last Admin: 01/02/18 08:25 Dose: 100 mls/hr Linezolid (Zyvox) Confirm Administered Dose 300 mls @ as directed .ROUTE .STK- MED ONE Stop: 01/02/18 08:58 Lidocaine/Epinephrine (Xylocaine 1% With Epinephrine 1:100,000) Confirm Administered Dose 50 ml .ROUTE .STK-MED ONE Stop: 01/02/18 06:50 Last Admin: 01/02/18 08:58 Dose: 5 ml Linezolid (Zyvox) 600 mg IRR .STK-MED ONE Stop: 01/02/18 09:01 Last Admin: 01/02/18 09:00 Dose: 600 mg Metoprolol Tartrate (Lopressor) 12.5 mg PO Q12H [facility] Last Admin: 01/02/18 11:48 Dose: 12.5 mg Ondansetron HCl (Zofran) 4 mg IVPUSH ONETIME ONE Stop: 01/01/18 19:44 Last Admin: 01/01/18 19:47 Dose: 4 mg Propofol (Diprivan 20 Ml) Confirm Administered Dose 200 mg .ROUTE .STK-MED ONE Stop: 01/02/18 08:42 - Exam Quality Assessment: DVT Prophylaxis General: Alert, Cooperative, No Acute Distress Lungs: Clear to Auscultation, Normal Respiratory Effort Cardiovascular: Regular Rhythm, No Murmurs, Bradycardia. No: Murmurs GI/Abdominal Exam: Soft, Non-Tender, No Organomegaly, No Distention Extremities: Non-Tender, No Pedal Edema Skin: Other (Laceration left forearm, dressing in place) - Problem List Review Problem List Initiated/Reviewed/Updated: Yes - My Orders Last 24 Hours: My Active Orders 01/02/18 11:09 Convert IV to Saline Lock [OM.PC] Routine 01/02/18 14:25 Orthostatic Vital Signs [RC] Q6HR 01/02/18 Breakfast Regular Diet [DIET] - Plan Plan:: ASSESSMENT / PLAN Symptomatic sinus bradycardia-with syncopal episode, metoprolol restarted late this morning at a lower dose. Shortly thereafter she developed bradycardia and was again symptomatic -Discontinue metoprolol and amlodipine -Saline lock IV -telemetry -Orthostatic vital signs every 6 hours Laceration left forearm-status post surgical repair by Dr. Ji -Postoperative care per Dr. Ji Maintenance issues -Orders home meds: hold Metoprolol -Nutrition: NPO after midnight -Carroll catheter not indicated at this time -DVT: SCD CODE STATUS: DNR-DNI Admission status: Admit to Observation -I expect this patient to stay less than 24 hours, not to exceed 48 hours for evaluation and management of this problem. Disposition: home with family Primary care provider: [facility] Hospitalist: Dr. Pickett
--- NOTE | 2018-01-02 14:34 | OR ---
DATE OF PROCEDURE: 01/02/2018 PREOPERATIVE DIAGNOSIS: Complex laceration of left forearm. POSTOPERATIVE DIAGNOSES: Complex laceration of left forearm including partial laceration of extensor digitorum muscle. OPERATIVE PROCEDURES: Exploration of laceration of left forearm with; 1. Repair of partial laceration of extensor digitorum muscle (99102). 2. Closure of complex laceration (30470, 97248). ANESTHESIA: Local plus IV sedation. INDICATION FOR PROCEDURE: This is an 82-year-old, who presented last evening to the emergency room with a syncopal episode. This appears to be related to being somewhat overtreated with beta-blockers as her was quite low overnight, this has improved. We elected to address the wound sterilely given her overall condition last night, rather than repair the laceration presently. The plan is to proceed with repair of laceration this morning. Potential risks including bleeding and infection were reviewed, and the patient wishes to proceed. DETAILS OF PROCEDURE: The patient was taken to the operative room and placed in the supine position. The area of laceration was posterior on the forearm, just distal to the olecranon process. The area was then prepped and draped after IV sedation was administered, and the wound was then irrigated with a Zyvox-containing saline solution. A portion of the extensor digitorum muscle and tendon were noted to be lacerated. This was closed with 0 Vicryl stitch. The otherwise complex laceration, which had several different areas of angulation within it, was closed with 2 layers of 3-0 and 4-0 Vicryl stitch deep, and then cassius for the skin. At one corner point, it was difficult to use cassius, and the skin was approximated there with a 5-0 catgut suture. The overall length of the entire laceration was 13 cm. Dressing was applied. The patient was taken to the recovery room in a satisfactory condition. There were no evident complications. Nicolás Ji MD /[id number]
--- NOTE | 2018-01-02 14:50 | CR ---
CHEST: Portable CLINICAL HISTORY:Chest pain COMPARISON:None FINDINGS: The heart size, pulmonary vascular and hilar structures are normal. There are atherosclero tic changes in the aorta. No infiltrate effusion or pneumothorax is seen. Patient has had left breast surgery. IMPRESSION: No acute cardiopulmonary process.
[2018-01-02] MEDS: ceFAZolin 1 GM in Premix Bag 1 BAG IV SCH ×2 (16:00→23:58)
[2018-01-02] MEDS ORDERED: amLODIPine 5 MG Tab PO ONE (19:00)
[2018-01-02] MEDS ORDERED: hydrALAZINE 20 MG/ML SDV IVPUSH PRN (19:01)
[2018-01-02] MEDS ORDERED: diphenhydrAMINE 25 MG Cap PO PRN (20:27)
[2018-01-02] MEDS: Acetaminophen 325 MG Tab PO PRN (20:48)
[2018-01-02] MEDS: Melatonin 3 MG Tab PO PRN (20:49)
[2018-01-03] MEDS: Acetaminophen 325 MG Tab PO PRN (03:10)
[2018-01-03] MEDS: ceFAZolin 1 GM in Premix Bag 1 BAG IV SCH (08:16)
[2018-01-03] MEDS ORDERED: Losartan 50 MG Tab**POM PO SCH (09:00)
[2018-01-03] MEDS ORDERED: amLODIPine 5 MG Tab**POM PO SCH (09:00)
[2018-01-03] MEDS: ANASTROZOLE 1 MG PO SCH (09:45)
[2018-01-03] MEDS: Isosorbide Mononitrate 30 MG Tab.ER (PTOM) PO SCH (09:49)
[2018-01-03] MEDS: Pantoprazole 40 MG Vial IVPUSH SCH (09:51)
--- NOTE | 2018-01-03 10:43 | PCM.DCSUM1 ---
Discharge Summary - Hospital Course Brief History: This patient is an 82-year-old woman who was admitted to observation status through the emergency room following a syncopal episode with a laceration of her left forearm. - Discharge Data Discharge Date: 01/03/18 Discharge Disposition: Home, Self-Care 01 Condition: Fair - Discharge Diagnosis/Problem(s) (1) Symptomatic sinus bradycardia SNOMED Code(s): 842061295 ICD Code: R00.1 - BRADYCARDIA, UNSPECIFIED Status: Acute Priority: High Current Visit: Yes (2) Laceration of left forearm SNOMED Code(s): 58377657192985620 ICD Code: S51.812A - LACERATION WITHOUT FOREIGN BODY OF LEFT FOREARM, INIT ENCNTR Status: Acute Priority: High Current Visit: Yes Qualifiers: Encounter type: initial encounter Qualified Code(s): S51.812A - Laceration without foreign body of left forearm, initial encounter (3) Essential hypertension SNOMED Code(s): 43257432 ICD Code: I10 - ESSENTIAL (PRIMARY) HYPERTENSION Status: Chronic Current Visit: No - Patient Summary/Data Consults: Consultations 01/01/18 22:18 Consult to Physician [CONS] Urgent Consulting Provider: Nicolás Ji Courtesy Call Completed to Consulting Physician: Yes: surgery in am Reason for Consult: left forearm laceration Person Notified: Dr. Nicolás Ji Date Notified: 01/01/18 Special Instructions: Dr. Ji evaluated Mrs. Dowling in ER prior to admission orders; NPO after midnight , surgery in am for laceration repair Hospital Course: This lady arrived by EMS after an episode of apparent syncope and falling at home. She had taken her night time meds already and was in the kitchen when her daughter heard her fall. She found her sitting up and leaning back against a cabinet. She also lacerated her left forearm. She's had multiple episodes of falling and syncope. She had a Holter monitor about a month ago but they never heard the results. Noted that she takes Metoprolol. The last episode she did have some mild bradycardia according to the ER note but was not hypotensive. EMS told the nurse that the patient's systolic BP on arrival tonight was in 80' s. She complains of nausea. No chest pain or sob. No other symptoms. Wound to left forearm lavaged copiously with large syringe and NS. Dr Ji examined and will suture in am. Dressing applied. On admission she was given IV fluids for hydration and kept nothing by mouth after midnight. Following morning forearm wound was surgically repaired by Dr. Ji. Metoprolol was held at the time of admission because of slow heart rates and this was felt to be a factor in her episodes of recurrent syncope. On the morning after admission she had another episode after she was restarted on the lower dose the metoprolol with heart rates in the 40s symptoms of lightheadedness nausea and vomiting. The amlodipine and also been held as her was concerned that she may have had some hypotension contributing to these episodes. Later in the second hospital day she was noted to have marked hypertension with systolic pressures around 200 and diastolic pressures between 100-110. She was placed back on amlodipine and her dose of losartan was increased to 100 mg daily. She will remain on this regimen at the time of discharge the metoprolol will be discontinued because of slow heart rates associated with symptoms of lightheadedness. All of appointment will be scheduled with her primary care provider within one week and a follow-up appointment will be scheduled with Dr. Ji for suture removal. Activity will be as tolerated and she will resume her usual diet. - Patient Instructions Diet: Heart Healthy Diet Activity: As Tolerated Other/Special Instructions: Please schedule follow-up appointment with primary care provider within one week. Please schedule a follow-up appointment with Dr. Ji for suture removal. - Discharge Plan *PRESCRIPTION DRUG MONITORING PROGRAM REVIEWED*: Not Applicable *COPY OF PRESCRIPTION DRUG MONITORING REPORT IN PATIENT PADMINI: Not Applicable Prescriptions/Med Rec: Losartan [Cozaar] 100 mg PO DAILY #30 tab Home Medications: Home Meds Anastrozole [Arimidex] 1 mg PO DAILY 02/21/17 [History] Aspirin [Halfprin] 81 mg PO DAILY 02/21/17 [History] amLODIPine [Norvasc] 2.5 mg PO DAILY 02/21/17 [History] Isosorbide Mononitrate [Imdur] 30 mg PO DAILY 09/21/17 [History] Cetirizine HCl [Zyrtec] 10 mg PO DAILY PRN 01/01/18 [History] Losartan [Cozaar] 100 mg PO DAILY #30 tab 01/03/18 [Rx] Referrals: Kevin Ravi, ROGELIO [Nurse Practitioner] - - Discharge Summary/Plan Comment DC Time >30 min.: No - Patient Data Vitals - Most Recent: Last Vital Signs Temp 98.6 F 01/03/18 00:00 Pulse 57 L 01/03/18 06:01 Resp 16 01/03/18 04:00 BP 150/106 H 01/03/18 09:50 Pulse Ox 98 01/03/18 08:00 Orthostatic Blood Pressure [ 150/106 Standing] Orthostatic Blood Pressure [ 154/58 Supine] Weight - Most Recent: 137 lb I&O - Last 24 hours: Intake & Output 01/02/18 01/03/18 01/03/18 22:59 06:59 14:59 Intake Total 860 50 Balance 860 50 Med Orders - Current: Current Medications Acetaminophen (Tylenol) 650 mg PO Q4H PRN PRN Reason: Pain (Mild 1-3)/fever Last Admin: 01/03/18 03:10 Dose: 650 mg Albuterol (Proventil Neb Soln) 2.5 mg NEB Q4H PRN PRN Reason: Shortness Of Breath/wheezing Amlodipine Besylate (Norvasc) 2.5 mg PO DAILY [facility] Last Admin: 01/03/18 09:50 Dose: 2.5 mg Anastrozole (Arimidex) 1 mg PO DAILY [facility] Last Admin: 01/03/18 09:45 Dose: 1 mg Bisacodyl (Dulcolax) 5 mg PO DAILY PRN PRN Reason: Constipation Diphenhydramine HCl (Benadryl) 25 mg PO Q6H PRN PRN Reason: nasal congestion Last Admin: 01/02/18 20:49 Dose: 25 mg Docusate Sodium (Colace) 100 mg PO BID PRN PRN Reason: Constipation Hydralazine HCl (Apresoline) 5 mg IVPUSH Q4H PRN PRN Reason: Hypertension Last Admin: 01/02/18 19:36 Dose: 5 mg Cefazolin Sodium/Dextrose 1 gm (/ Premix) 50 mls @ 100 mls/hr IV Q8H [facility] Last Admin: 01/03/18 08:16 Dose: 100 mls/hr Isosorbide Mononitrate (Imdur) 30 mg PO DAILY [facility] Last Admin: 01/03/18 09:49 Dose: 30 mg Lorazepam (Ativan) 1 mg IV Q6H PRN PRN Reason: Nausea/Vomiting Losartan Potassium (Cozaar) 100 mg PO DAILY [facility] Last Admin: 01/03/18 09:48 Dose: 100 mg Melatonin (Melatonin) 6 mg PO BEDTIME PRN PRN Reason: Insomnia Last Admin: 01/02/18 20:49 Dose: 6 mg Morphine Sulfate (Morphine) 2 mg IVPUSH Q2H PRN PRN Reason: Pain (severe 7-10) Ondansetron HCl (Zofran Odt) 4 mg PO Q6H PRN PRN Reason: Nausea able to take PO Ondansetron HCl (Zofran) 4 mg IV Q4H PRN PRN Reason: Nausea/Vomiting Last Admin: 01/02/18 12:33 Dose: 4 mg Oxycodone HCl (Oxycodone) 5 mg PO Q4H PRN PRN Reason: Pain (moderate 4-6) Pantoprazole Sodium (Protonix Iv) 40 mg IVPUSH DAILY [facility] Last Admin: 01/03/18 09:51 Dose: 40 mg Discontinued Medications Amlodipine Besylate (Norvasc) 2.5 mg PO DAILY [facility] Last Admin: 01/02/18 11:11 Dose: 2.5 mg Amlodipine Besylate (Norvasc) 5 mg PO ONETIME ONE Stop: 01/02/18 19:01 Last Admin: 01/02/18 19:35 Dose: 5 mg Bupivacaine HCl (Marcaine 0.5%) Confirm Administered Dose 50 ml .ROUTE .STK-MED ONE Stop: 01/02/18 06:50 Last Admin: 01/02/18 08:58 Dose: 5 ml Fentanyl (Sublimaze) Confirm Administered Dose 100 mcg .ROUTE .STK-MED ONE Stop: 01/02/18 08:43 Sodium Chloride (Normal Saline) 1,000 mls @ 999 mls/hr IV ASDIRECTED [facility] Last Admin: 01/01/18 19:35 Dose: 999 mls/hr Sodium Chloride (Normal Saline) 1,000 mls @ 125 mls/hr IV ASDIRECTED [facility] Last Admin: 01/02/18 05:37 Dose: 125 mls/hr Cefazolin Sodium/Dextrose 2 gm (/ Premix) 50 mls @ 100 mls/hr IV ONETIME ONE Stop: 01/02/18 08:29 Last Admin: 01/02/18 08:25 Dose: 100 mls/hr Linezolid (Zyvox) Confirm Administered Dose 300 mls @ as directed .ROUTE .STK- MED ONE Stop: 01/02/18 08:58 Lidocaine/Epinephrine (Xylocaine 1% With Epinephrine 1:100,000) Confirm Administered Dose 50 ml .ROUTE .STK-MED ONE Stop: 01/02/18 06:50 Last Admin: 01/02/18 08:58 Dose: 5 ml Linezolid (Zyvox) 600 mg IRR .STK-MED ONE Stop: 01/02/18 09:01 Last Admin: 01/02/18 09:00 Dose: 600 mg Losartan Potassium (Cozaar) 50 mg PO DAILY [facility] Last Admin: 01/02/18 11:09 Dose: 50 mg Metoprolol Tartrate (Lopressor) 12.5 mg PO Q12H [facility] Last Admin: 01/02/18 11:48 Dose: 12.5 mg Ondansetron HCl (Zofran) 4 mg IVPUSH ONETIME ONE Stop: 01/01/18 19:44 Last Admin: 01/01/18 19:47 Dose: 4 mg Propofol (Diprivan 20 Ml) Confirm Administered Dose 200 mg .ROUTE .STK-MED ONE Stop: 01/02/18 08:42 - Exam General: Reports: Alert, Cooperative, No Acute Distress Lungs: Reports: Clear to Auscultation, Normal Respiratory Effort Cardiovascular: Reports: Regular Rate, Regular Rhythm, No Murmurs GI/Abdominal Exam: Soft, Non-Tender, No Organomegaly, No Distention Extremities: Other (Dressing in place left forearm)
== END 2018-01-03 11:11 | disposition home or self-care (01) ==
LOC: JP.ED 19:22 → JP.ICU 21:57
PROVIDERS: ADMIT Hospitalist; ATTEND Hospitalist
DX: S51.812A Laceration without foreign body of left forearm, initial encounter (principal); S56.522A Laceration of other extensor muscle, fascia and tendon at forearm level, left arm, initial encounter; I10 Essential (primary) hypertension; R00.1 Bradycardia, unspecified; Z79.82 Long term (current) use of aspirin; Z79.899 Other long term (current) drug therapy; W19.XXXA Unspecified fall, initial encounter; Y92.009 Unspecified place in unspecified non-institutional (private) residence as the place of occurrence of the external cause
CPT/HCPCS: 13121; 13122; 36415; 71045; 80048; 80053; 81001; 84484; 85025; 93005; 93010; 96361; 96365; 96366; 96375; 99284; A9270; C9113; G0378; J0360; J0690; J2020; J2405; J2704; J3010; J3490; J7030; 96374

== ENCOUNTER 2018-10-14 10:23 | Emergency (ER) | payer MEDICARE ==
[2018-10-14] MEDS ORDERED: Sodium Chloride 0.9% 1,000 ML IV SCH (11:00)
--- NOTE | 2018-10-14 11:06 | EDM.PDOC ---
ED HPI GENERAL MEDICAL PROBLEM - General Chief Complaint: General Stated Complaint: SICK VIA [facility] Time Seen by Provider: 10/14/18 10:45 Source of Information: Reports: Patient, EMS, Family History Limitations: Reports: No Limitations - History of Present Illness INITIAL COMMENTS - FREE TEXT/NARRATIVE: 83-year-old female who hasn't felt well for several days, this morning had significant weakness, some nausea and several emesis and the family decided she needed to be seen. She denies any shortness of breath, no significant pain. Denies diarrhea or fever. She's had a prominent rash that was asymptomatic on the left chest and arm for the past 1-2 weeks, did not tell the family about it. She denies that it bothered her. She is managing to drink some fluids but not eating much. The chief complaint is the weakness. Onset: Gradual Duration: Week(s): Associated Symptoms: Reports: Loss of Appetite, Malaise, Nausea/Vomiting, Weakness, Other (No recent falls). Denies: Confusion, Cough, Diaphoresis, Fever /Chills, Headaches, Shortness of Breath - Related Data Allergies Allergy/AdvReac Type Severity Reaction Status Date / Time No Known Allergies Allergy Verified 10/14/18 10:30 Home Meds: Home Meds Anastrozole [Arimidex] 1 mg PO DAILY 02/21/17 [History] Aspirin [Halfprin] 81 mg PO DAILY 02/21/17 [History] amLODIPine [Norvasc] 2.5 mg PO DAILY 02/21/17 [History] Isosorbide Mononitrate [Imdur] 30 mg PO DAILY 09/21/17 [History] Cetirizine HCl [Zyrtec] 10 mg PO DAILY PRN 01/01/18 [History] Losartan [Cozaar] 100 mg PO DAILY #30 tab 01/03/18 [Rx] Past Medical History HEENT History: Reports: Glaucoma, Impaired Vision Cardiovascular History: Reports: Arrhythmia, Hypertension, Syncope Gastrointestinal History: Reports: None 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: 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 History: Reports: Fracture Oncologic (Cancer) History: Reports: Breast - Infectious Disease History Infectious Disease History: Reports: Chicken Pox - Past Surgical History Head Surgeries/Procedures: Reports: None HEENT Surgical History: Reports: Eye Surgery Cardiovascular Surgical History: Reports: None GI Surgical History: Reports: Appendectomy, Cholecystectomy Female Surgical History: Reports: Breast Biopsy, Hysterectomy, Other (See Below) Other Female Surgeries/Procedures: partial mastectomy 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 Surgical History: Reports: None Oncologic Surgical History: Reports: Lumpectomy Social & Family History - Family History Family Medical History: Unobtainable - Tobacco Use Smoking Status *Q: Never Smoker Second Hand Smoke Exposure: No - Caffeine Use Caffeine Use: Reports: None - Recreational Drug Use Recreational Drug Use: No - Living Situation & Occupation Living situation: Reports: , with Family ( two years ago, now living with only child, son and his family in [place], [place].) Occupation: Disabled ED ROS GENERAL - Review of Systems Review Of Systems: See Below Constitutional: Reports: Malaise, Weakness, Decreased Appetite. Denies: Fever, Chills, Diaphoresis HEENT: Reports: No Symptoms Respiratory: Denies: Shortness of Breath, Cough Cardiovascular: Denies: Chest Pain GI/Abdominal: Reports: Nausea, Vomiting. Denies: Abdominal Pain, Constipation, Diarrhea : Reports: No Symptoms Skin: Reports: Other (Blistering rash on the left chest and left arm, a small area on the back for the past several weeks) Psychiatric: Reports: Depression ( 2 years ago and she is ready to go) ED EXAM, GENERAL - Physical Exam Exam: See Below Exam Limited By: No Limitations General Appearance: Alert Eye Exam: Bilateral Eye: EOMI (No jaundice, hydration looks normal) Respiratory/Chest: No Respiratory Distress, Decreased Breath Sounds (Some decreased breath sounds in the right base) Cardiovascular: Regular Rate, Rhythm ( no rales or rhonchi). No: Tachycardia GI/Abdominal: Soft, Non-Tender Extremities: Normal Inspection. No: Pedal Edema Neurological: Alert, Oriented Psychiatric: Depressed Mood, Flat Affect Skin Exam: Warm, Dry, Zoster-Like Rash (Erythematous irregular rash with dried lesions starting at midline on the left upper chest around the side of the chest and onto the upper back and a few spots on the left inner arm) Course - Vital Signs Last Recorded V/S: Last Vital Signs Temp 95.8 F 10/14/18 10:37 Pulse 75 10/14/18 10:37 Resp 16 10/14/18 10:37 BP 131/53 L 10/14/18 10:37 Pulse Ox 100 10/14/18 10:37 - Orders/Labs/Meds Orders: Active Orders 24 hr Category Date Time Status CULTURE URINE [RM] Stat Lab 10/14/18 11:43 Received Labs: Laboratory Tests 10/14/18 10/14/18 10/14/18 Range/Units 11:07 11:07 11:11 WBC 5.1 (4.5-11.0) K/uL RBC 4.20 (3.30-5.50) M/uL Hgb 14.0 (12.0-15.0) g/dL Hct 40.8 (36.0-48.0) % MCV 97 (80-98) fL MCH 33 H (27-31) pg MCHC 34 (32-36) % Plt Count 119 L (150-400) K/uL Neut % (Auto) 70 H (36-66) % Lymph % (Auto) 17 L (24-44) % Crisp % (Auto) 12 H (2-6) % Eos % (Auto) 0 L (2-4) % Baso % (Auto) 1 (0-1) % Sodium 135 L (140-148) mmol/L Potassium 4.0 (3.6-5.2) mmol/L Chloride 99 L (100-108) mmol/L Carbon Dioxide 27 (21-32) mmol/L Anion Gap 13.0 (5.0-14.0) mmol/L BUN 29 H (7-18) mg/dL Creatinine 1.1 H (0.6-1.0) mg/dL Est Cr Clr Drug Dosing 26.86 mL/min Estimated GFR (MDRD) 47 L (>60) Glucose 116 H (74-106) mg/dL Calcium 8.8 (8.5-10.1) mg/dL Total Bilirubin 0.5 D (0.2-1.0) mg/dL AST 17 (15-37) U/L ALT 17 (12-78) U/L Alkaline Phosphatase 91 (46-116) U/L Troponin I < 0.017 (0.000-0.056) ng/mL Total Protein 6.7 (6.4-8.2) g/dL Albumin 3.1 L (3.4-5.0) g/dL Globulin 3.6 H (2.3-3.5) g/dL Albumin/Globulin Ratio 0.9 L (1.2-2.2) Urine Color [place] Urine Appearance Cloudy Urine pH 5.0 (4.5-8.0) Ur Specific [place] 1.020 (1.008-1.030) Urine Protein Trace (NEGATIVE) mg/dL Urine Glucose (UA) Normal (NEGATIVE) mg/dL Urine Ketones 15 H (NEGATIVE) mg/dL Urine Occult Blood Moderate (NEGATIVE) Urine Nitrite Negative (NEGATIVE) Urine Bilirubin Moderate (NEGATIVE) Urine Urobilinogen 1 (NORMAL) mg/dL Ur Leukocyte Esterase Small (NEGATIVE) Urine RBC 5-10 H (0-5) Urine WBC 20-30 H (0-5) Ur Epithelial Cells Moderate Amorphous Sediment Few Urine Bacteria Moderate Urine Mucus Many Urine Other See note Meds: Medications Discontinued Medications Generic Name Dose Route Start Last Admin Trade Name Randyq PRN Reason Stop Dose Admin Sodium Chloride 1,000 mls @ 500 mls/hr 10/14/18 11:00 10/14/18 11:15 Normal Saline IV 500 mls/hr ASDIRECTED [facility] Administration Ceftriaxone Sodium 1 gm/ 50 mls @ 100 mls/hr 10/14/18 12:15 10/14/18 12:25 Sodium Chloride IV 10/14/18 12:44 100 mls/hr ONETIME ONE Administration - Re-Assessments/Exams Free Text/Narrative Re-Assessment/Exam: 10/14/18 11:11 An IV was started and the patient was hydrated with normal saline. CBC CMP troponin were obtained as well as a mini catheter UA. 10/14/18 12:05 CBC was reassuring, hemoglobin and white count are normal. UA showed 15 ketones and also 10-20 WBCs with moderate bacteria. This was a catheter specimen so a culture was initiated and the patient was given 1 g of IV Rocephin. She developed no further nausea while in the emergency room and did feel better. 10/14/18 12:10 CMP returned reassuring, mild elevation in creatinine and BUN and mild decrease in GFR at 47. Also indicating dehydration. Patient was given 750 mL of normal saline along with 1 g of Rocephin and was discharged home. We will be in touch with culture results of the urine if necessary. She will increase activity as tolerated and return if not improving. No additional antibiotics are necessary. Departure - Departure Time of Disposition: 13:17 Disposition: Home, Self-Care 01 Clinical Impression: Weakness, Cystitis Nausea & vomiting Qualifiers: Vomiting type: unspecified Vomiting Intractability: non-intractable Qualified Code(s): R11.2 - Nausea with vomiting, unspecified - Discharge Information Instructions: Weakness Referrals: PCP,None [Primary Care Provider] - Forms: ED Department Discharge Care Plan Goals: Continue any of her current medications, increase activity and diet as tolerated and recheck in 2-3 days if not improving. Return anytime if worsening or concerns. - My Orders Last 24 Hours: My Active Orders 10/14/18 11:43 CULTURE URINE [RM] Stat - Assessment/Plan Last 24 Hours: My Active Orders 10/14/18 11:43 CULTURE URINE [RM] Stat
[2018-10-14] MEDS ORDERED: cefTRIAXone 1 GM Vial IM ONE (12:04)
[2018-10-14] MEDS ORDERED: cefTRIAXone 1 GM in Sodium Chloride 0.9% 50 ML IV ONE (12:15)
== END 2018-10-14 13:05 | disposition home or self-care (01) ==
LOC: JP.ED 10:23
DX: N30.90 Cystitis, unspecified without hematuria (principal); R53.1 Weakness; R11.2 Nausea with vomiting, unspecified; Z79.82 Long term (current) use of aspirin; Z79.899 Other long term (current) drug therapy; I10 Essential (primary) hypertension
CPT/HCPCS: 36415; 80053; 81001; 84484; 85025; 87086; 96361; 96365; 99284; J0696; J7030; J7050

== ENCOUNTER 2019-03-29 19:36 | Emergency (ER) | payer MEDICARE ==
[2019-03-29] MEDS ORDERED: amLODIPine 5 MG Tab PO ONE (20:08)
--- NOTE | 2019-03-29 20:18 | EDM.PDOC ---
ED HPI GENERAL MEDICAL PROBLEM - General Chief Complaint: Cardiovascular Problem Stated Complaint: MEDICAL Time Seen by Provider: 03/29/19 20:05 Source of Information: Reports: Patient, EMS, Family, Old Records History Limitations: Reports: No Limitations - History of Present Illness INITIAL COMMENTS - FREE TEXT/NARRATIVE: 83 yo female is brought in by EMS after an apparent syncopal spell that occurred while sitting in a recliner. Family says it looked like she was sleeping, but she was more pale, and would not arouse. Has never passed out while sitting before. Had no complaints before the syncope. Has eaten normally. Is quite depressed due to the loss of her about 3 yrs ago. Lives in the same household as the son. EMS noted a HR upon arrival in the 40's. They did an EKG that showed sinus ricki only. Onset: Today Onset Date: 03/29/19 Onset Time: 19:00 Duration: Minutes:, Resolved Prior to Arrival Location: Reports: Generalized Quality: Reports: Other (no pain reported) Severity: Moderate Improves with: Reports: Other (? time) Worsens with: Reports: Other (unknown) Context: Reports: Other (see HPI) Associated Symptoms: Reports: Syncope. 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) - Related Data Allergies Allergy/AdvReac Type Severity Reaction Status Date / Time No Known Allergies Allergy Verified 03/29/19 19:53 Home Meds: Home Meds Aspirin [Halfprin] 81 mg PO DAILY 02/21/17 [History] amLODIPine [Norvasc] 2.5 mg PO DAILY 02/21/17 [History] Isosorbide Mononitrate [Imdur] 30 mg PO DAILY 09/21/17 [History] Losartan [Cozaar] 100 mg PO DAILY #30 tab 01/03/18 [Rx] Past Medical History HEENT History: Reports: Glaucoma, Impaired Vision Cardiovascular History: Reports: Arrhythmia, Hypertension, Syncope Gastrointestinal History: Reports: None 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: 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 History: Reports: Fracture Oncologic (Cancer) History: Reports: Breast - Infectious Disease History Infectious Disease History: Reports: Chicken Pox - Past Surgical History Head Surgeries/Procedures: Reports: None HEENT Surgical History: Reports: Eye Surgery Cardiovascular Surgical History: Reports: None GI Surgical History: Reports: Appendectomy, Cholecystectomy Female Surgical History: Reports: Breast Biopsy, Hysterectomy, Other (See Below) Other Female Surgeries/Procedures: partial mastectomy 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 Surgical History: Reports: None Oncologic Surgical History: Reports: Lumpectomy Social & Family History - Family History Family Medical History: Unobtainable - Tobacco Use Smoking Status *Q: Never Smoker - Caffeine Use Caffeine Use: Reports: None - Living Situation & Occupation Living situation: Reports: , with Family ( two years ago, now living with only child, son and his family in [place], [place].) Occupation: Disabled ED ROS GENERAL - Review of Systems Review Of Systems: See Below Constitutional: Reports: No Symptoms HEENT: Reports: No Symptoms Respiratory: Reports: No Symptoms Cardiovascular: Reports: Syncope Endocrine: Reports: No Symptoms GI/Abdominal: Reports: No Symptoms : Reports: No Symptoms 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: Reports: No Symptoms Skin: Reports: No Symptoms Neurological: Reports: No Symptoms Psychiatric: Reports: Depression ED EXAM, GENERAL - Physical Exam Exam: See Below Exam Limited By: No Limitations General Appearance: Alert, WD/WN, No Apparent Distress Eye Exam: Bilateral Eye: Normal Inspection Ears: Normal External Exam, Normal Canal, Hearing Grossly Normal, Normal TMs Ear Exam: Bilateral Ear: Auricle Normal, Canal Normal, TM normal Nose: Normal Inspection, Normal Mucosa, No Blood Throat/Mouth: Normal Inspection, Normal Lips, Normal Oropharynx, Normal Voice, No Airway Compromise Head: Atraumatic, Normocephalic Neck: Normal Inspection Respiratory/Chest: No Respiratory Distress, Lungs Clear, Normal Breath Sounds, No Accessory Muscle Use Cardiovascular: Regular Rate, Rhythm, No Edema GI/Abdominal: Normal Bowel Sounds, Soft, Non-Tender, No Distention Back Exam: Normal Inspection. No: CVA Tenderness (R), CVA Tenderness (L) Extremities: Normal Inspection, Normal Range of Motion, Non-Tender, No Pedal Edema, Pedal Edema Neurological: Alert, Oriented, CN II-XII Intact, No Motor/Sensory Deficits Psychiatric: Normal Mood, Depressed Mood, Flat Affect Skin Exam: Warm, Dry, Intact, Normal Color, No Rash Course - Vital Signs Text/Narrative:: Did well during her ER stay. Last Recorded V/S: Last Vital Signs Temp 35.8 C 12/13/19 20:03 Pulse 51 L 03/29/19 20:11 Resp 12 03/29/19 20:11 BP 151/49 H 03/29/19 20:18 Pulse Ox 96 03/29/19 20:11 - Orders/Labs/Meds Orders: Active Orders 24 hr Category Date Time Status Cardiac Monitoring [RC] .As Directed Care 03/29/19 20:08 Active Labs: Laboratory Tests 03/29/19 03/29/19 03/29/19 Range/Units 20:22 20:22 21:15 WBC 5.5 (4.5-11.0) K/uL RBC 3.95 (3.30-5.50) M/uL Hgb 13.1 (12.0-15.0) g/dL Hct 38.3 (36.0-48.0) % MCV 97 (80-98) fL MCH 33 H (27-31) pg MCHC 34 (32-36) % Plt Count 264 (150-400) K/uL Sodium 131 L (140-148) mmol/L Potassium 4.3 (3.6-5.2) mmol/L Chloride 96 L (100-108) mmol/L Carbon Dioxide 27 (21-32) mmol/L Anion Gap 12.3 (5.0-14.0) mmol/L BUN 15 (7-18) mg/dL Creatinine 1.0 (0.6-1.0) mg/dL Est Cr Clr Drug Dosing 29.54 mL/min Estimated GFR (MDRD) 53 L (>60) Glucose 105 (74-106) mg/dL Calcium 8.8 (8.5-10.1) mg/dL Troponin I < 0.017 (0.000-0.056) ng/mL Urine Color Yellow (YELLOW) Urine Appearance Clear (CLEAR) Urine pH 7.5 (5.0-8.0) Ur Specific [place] 1.020 (1.008-1.030) Urine Protein Negative (NEGATIVE) mg/dL Urine Glucose (UA) Negative (NEGATIVE) mg/dL Urine Ketones Negative (NEGATIVE) mg/dL Urine Occult Blood Negative (NEGATIVE) Urine Nitrite Negative (NEGATIVE) Urine Bilirubin Negative (NEGATIVE) Urine Urobilinogen 0.2 (0.2-1.0) EU/dL Ur Leukocyte Esterase Trace H (NEGATIVE) Urine RBC 0-5 (0-5) Urine WBC 0-5 (0-5) Ur Epithelial Cells Few Amorphous Sediment Few Urine Bacteria Not seen Urine Mucus Few Meds: Medications Discontinued Medications Generic Name Dose Route Start Last Admin Trade Name Lexie PRN Reason Stop Dose Admin Amlodipine Besylate 5 mg 03/29/19 20:08 03/29/19 20:18 Norvasc PO 03/29/19 20:09 5 mg ONETIME ONE Administration Departure - Departure Time of Disposition: 21:45 Disposition: Home, Self-Care 01 Condition: Fair Clinical Impression: Bradycardia Syncope Qualifiers: Syncope type: unspecified Qualified Code(s): R55 - Syncope and collapse Instructions: Syncope, [id number] Referrals: Kevin Ravi NP [Primary Care Provider] - Forms: ED Department Discharge Additional Instructions: Return Monday to obtain your front desk monitor. Return in the interim as needed. See your provider after turning in the Holter monitor and to discuss treatment for depression. Sepsis Event Note - Evaluation Sepsis Screening Result: No Definite Risk - Focused Exam Vital Signs: Vital Signs Temp Pulse Resp BP BP Pulse Ox 03/29/19 20:18 151/49 H 03/29/19 20:11 51 L 12 164/76 H 96 03/29/19 20:03 35.8 C 54 L 13 180/75 H 99 03/29/19 19:40 35.8 C 54 L 13 180/75 H 99 Date Exam was Performed: 03/29/19 Time Exam was Performed: 21:31 - My Orders Last 24 Hours: My Active Orders 03/29/19 20:08 Cardiac Monitoring [RC] .As Directed - Assessment/Plan Last 24 Hours: My Active Orders 03/29/19 20:08 Cardiac Monitoring [RC] .As Directed
== END 2019-03-29 22:04 | disposition home or self-care (01) ==
LOC: JP.ED 19:36
DX: R55 Syncope and collapse (principal); R00.1 Bradycardia, unspecified; I10 Essential (primary) hypertension; Z79.899 Other long term (current) drug therapy; Z79.82 Long term (current) use of aspirin
CPT/HCPCS: 36415; 80048; 81001; 84484; 85027; 99284; A9270

== ENCOUNTER 2020-05-15 19:47 | Emergency (ER) | payer MEDICARE ==
--- NOTE | 2020-05-15 19:52 | EDM.PDOC ---
ED HPI GENERAL MEDICAL PROBLEM - General Stated Complaint: MEDICAL VIA MONTEREY Time Seen by Provider: 05/15/20 19:48 Source of Information: Reports: EMS History Limitations: Reports: Altered Mental Status (Patient has a baseline of dementia) - History of Present Illness INITIAL COMMENTS - FREE TEXT/NARRATIVE: Liliana is an 84-year-old female with dementia presenting from [facility] via [place] [facility] for evaluation of recurrent episodes of bradycardia and syncope. By report from EMS, the residential told them that the patient started having projectile vomiting this morning and had several episodes where they found her heart rate to be in the 40s and the patient unresponsive. This recurred this afternoon and the residential contacted the family who recommended that they contacted the doctor. The doctor wanted the patient brought in for evaluation. At the time of EMSs arrival, the patient was alert and at baseline with no acute distress. She not had any emesis for several hours. She was normotensive and had a normal pulse rate in the 60s. The patient did not want to be brought in to be evaluated, however, it was felt that she lacked the capacity to make this decision and her doctor wanted her seen. The patient is afebrile and in no acute distress although she is confused. - Related Data Allergies Allergy/AdvReac Type Severity Reaction Status Date / Time No Known Allergies Allergy Verified 05/15/20 20:11 Home Meds: Home Meds Aspirin [Halfprin] 81 mg PO DAILY 02/21/17 [History] amLODIPine [Norvasc] 2.5 mg PO DAILY 02/21/17 [History] Isosorbide Mononitrate [Imdur] 30 mg PO DAILY 09/21/17 [History] Acetaminophen [Tylenol Arthritis Pain] 1 tab PO DAILY 05/15/20 [History] Brimonidine Tartrate/Timolol [Combigan 0.2%-0.5% Eye Drops] 1 drop EYEBOTH BID 05/15/20 [History] Divalproex Sodium [Depakote] 250 mg PO TID 05/15/20 [History] Latanoprost/Pf [Latanoprost 0.005% Eye Drop] 1 drop EYEBOTH BID 05/15/20 [History] Metoprolol Succinate 25 mg PO DAILY 05/15/20 [History] cephALEXin [Cephalexin] 250 mg PO BID 5 Days #9 capsule 05/15/20 [Rx] Past Medical History HEENT History: Reports: Glaucoma, Impaired Vision Cardiovascular History: Reports: Arrhythmia, Hypertension, Syncope Gastrointestinal History: Reports: None 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 History: Reports: Fracture Oncologic (Cancer) History: Reports: Breast - Infectious Disease History Infectious Disease History: Reports: Chicken Pox - Past Surgical History Head Surgeries/Procedures: Reports: None HEENT Surgical History: Reports: Eye Surgery Cardiovascular Surgical History: Reports: None GI Surgical History: Reports: Appendectomy, Cholecystectomy Female Surgical History: Reports: Breast Biopsy, Hysterectomy, Other (See Below) Other Female Surgeries/Procedures: partial mastectomy 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 Surgical History: Reports: None Oncologic Surgical History: Reports: Lumpectomy Social & Family History - Family History Family Medical History: Unobtainable - Caffeine Use Caffeine Use: Reports: None - Living Situation & Occupation Living situation: Reports: , with Family ( two years ago, now living with only child, son and his family in [place], [place].) Occupation: Disabled ED ROS GENERAL - Review of Systems Review Of Systems: Unable To Obtain (Patient has a baseline of dementia) Reason Not Obtained: Patient has a baseline of dementia and is not reliable for review HEENT: Reports: No Symptoms Respiratory: Reports: No Symptoms Cardiovascular: Reports: Syncope, Other (Episodic bradycardia likely due to vagal stimulation) Endocrine: Reports: No Symptoms GI/Abdominal: Reports: Nausea, Vomiting. Denies: Constipation, Diarrhea, Decreased Appetite, Difficulty Swallowing 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: Reports: No Symptoms Skin: Reports: No Symptoms Neurological: Reports: Confusion, Syncope Psychiatric: Reports: No Symptoms Hematologic/Lymphatic: Reports: No Symptoms Immunologic: Reports: No Symptoms ED EXAM, GENERAL - Physical Exam Exam: See Below Exam Limited By: No Limitations General Appearance: Alert, No Apparent Distress, Anxious Eye Exam: Bilateral Eye: EOMI, PERRL Throat/Mouth: Normal Inspection, Normal Oropharynx Head: Atraumatic, Normocephalic Neck: Normal Inspection, Supple, Non-Tender Respiratory/Chest: No Respiratory Distress, Lungs Clear, Normal Breath Sounds Cardiovascular: Normal Peripheral Pulses, Regular Rate, Rhythm, No Edema, No JVD, No Murmur Peripheral Pulses: 2+: Radial (L), Radial (R) GI/Abdominal: Normal Bowel Sounds, Soft, Non-Tender, No Distention Back Exam: Normal Inspection Extremities: Normal Inspection, No Pedal Edema Neurological: Alert, No Motor/Sensory Deficits Psychiatric: Normal Affect, Anxious Skin Exam: Warm, Dry, Intact, Normal Color Lymphatic: No Adenopathy Course - Vital Signs Last Recorded V/S: Last Vital Signs Temp 36.0 C L 05/15/20 20:06 Pulse 57 L 05/15/20 20:06 Resp 15 05/15/20 20:06 BP 156/78 H 05/15/20 20:06 Pulse Ox 97 05/15/20 20:06 - Orders/Labs/Meds Orders: Active Orders 24 hr Category Date Time Status EKG Documentation Completion [RC] ASDIRECTED Care 05/15/20 19:49 Active cephALEXin [Keflex 250 MG/5 ML Susp] Med 05/15/20 21:22 Once 250 mg PO ONETIME ONE EKG 12 Lead [EK] Routine Ther 05/15/20 19:48 Ordered Labs: Laboratory Tests 05/15/20 05/15/20 05/15/20 Range/Units 19:48 20:00 20:00 WBC 5.3 (4.5-11.0) K/uL RBC 3.99 (3.30-5.50) M/uL Hgb 13.6 (12.0-15.0) g/dL Hct 41.4 (36.0-48.0) % MCV 104 H (80-98) fL MCH 34 H (27-31) pg MCHC 33 (32-36) % Plt Count 182 (150-400) K/uL Neut % (Auto) 63 (36-66) % Lymph % (Auto) 22 L (24-44) % [place] % (Auto) 11 H (2-6) % Eos % (Auto) 4 (2-4) % Baso % (Auto) 0 (0-1) % Sodium 140 (140-148) mmol/L Potassium 3.8 (3.6-5.2) mmol/L Chloride 100 (100-108) mmol/L Carbon Dioxide 31 (21-32) mmol/L Anion Gap 8.8 (5.0-14.0) mmol/L BUN 24 H D (7-18) mg/dL Creatinine 1.0 (0.6-1.0) mg/dL Est Cr Clr Drug Dosing 34.87 mL/min Estimated GFR (MDRD) 53 L (>60) Glucose 123 H (74-106) mg/dL Calcium 8.8 (8.5-10.1) mg/dL Total Bilirubin 0.4 (0.2-1.0) mg/dL AST 14 L (15-37) U/L ALT 16 (12-78) U/L Alkaline Phosphatase 64 (46-116) U/L Troponin I < 0.017 (0.000-0.056) ng/mL Total Protein 7.4 (6.4-8.2) g/dL Albumin 2.7 L (3.4-5.0) g/dL Globulin 4.7 H (2.3-3.5) g/dL Albumin/Globulin Ratio 0.6 L (1.2-2.2) Urine Color Yellow (YELLOW) Urine Appearance Slightly cloudy A (CLEAR) Urine pH 6.0 (5.0-8.0) Ur Specific [place] 1.025 (1.008-1.030) Urine Protein Negative (NEGATIVE) mg/dL Urine Glucose (UA) Negative (NEGATIVE) mg/dL Urine Ketones Negative (NEGATIVE) mg/dL Urine Occult Blood Negative (NEGATIVE) Urine Nitrite Negative (NEGATIVE) Urine Bilirubin Negative (NEGATIVE) Urine Urobilinogen 1.0 (0.2-1.0) EU/dL Ur Leukocyte Esterase Small H (NEGATIVE) Urine RBC 0-5 (0-5) Urine WBC 10-20 H (0-5) Ur Epithelial Cells Many Amorphous Sediment Rare Urine Bacteria Moderate Urine Mucus Many Urine Other Not Reportable Urinalysis Comment Departure - Departure Time of Disposition: 21:23 Disposition: DC/Tfer to [facility] 61 Condition: Fair Clinical Impression: Bradycardia Syncope Qualifiers: Syncope type: vasovagal syncope Qualified Code(s): R55 - Syncope and collapse Urinary tract infection Qualifiers: Urinary tract infection type: acute cystitis Hematuria presence: without hematuria Qualified Code(s): N30.00 - Acute cystitis without hematuria - Discharge Information *PRESCRIPTION DRUG MONITORING PROGRAM REVIEWED*: Not Applicable *COPY OF PRESCRIPTION DRUG MONITORING REPORT IN PATIENT PADMINI: Not Applicable Instructions: Urinary Tract Infection, Adult, [id number], Syncope, [id number], Bradycardia, Adult Care Plan Goals: We will discharge her back to [facility] with a prescription for cephalexin 250 mg twice daily for the next 7 days for UTI. The patient previously had a history of vasovagal syncope and likely her recurrent episodes today were due to increased vagal stimulation due to the nausea and vomiting. There is nothing new in her work-up. Family was notified of the patient returning to the residential. Sepsis Event Note (ED) - Focused Exam Vital Signs: Vital Signs Temp Pulse Resp BP Pulse Ox 05/15/20 20:06 36.0 C L 57 L 15 156/78 H 97 - Problem List & Annotations (1) Syncope SNOMED Code(s): 571611135 Code(s): R55 - SYNCOPE AND COLLAPSE Status: Acute Priority: High Current Visit: Yes Qualifiers: Syncope type: vasovagal syncope Qualified Code(s): R55 - Syncope and collapse (2) Bradycardia SNOMED Code(s): 48132864 Code(s): R00.1 - BRADYCARDIA, UNSPECIFIED Status: Acute Priority: High Current Visit: Yes (3) Urinary tract infection SNOMED Code(s): 80321230 Code(s): N39.0 - URINARY TRACT INFECTION, SITE NOT SPECIFIED Status: Acute Priority: High Current Visit: Yes Qualifiers: Urinary tract infection type: acute cystitis Hematuria presence: without hematuria Qualified Code(s): N30.00 - Acute cystitis without hematuria - Problem List Review Problem List Initiated/Reviewed/Updated: Yes - My Orders Last 24 Hours: My Active Orders 05/15/20 19:48 EKG 12 Lead [EK] Routine 05/15/20 19:49 EKG Documentation Completion [RC] ASDIRECTED 05/15/20 21:22 cephALEXin [Keflex 250 MG/5 ML Susp] 250 mg PO ONETIME ONE - Assessment/Plan Last 24 Hours: My Active Orders 05/15/20 19:48 EKG 12 Lead [EK] Routine 05/15/20 19:49 EKG Documentation Completion [RC] ASDIRECTED 05/15/20 21:22 cephALEXin [Keflex 250 MG/5 ML Susp] 250 mg PO ONETIME ONE
[2020-05-15] MEDS ORDERED: Cephalexin 250 MG/5 ML Susp 100 ML Bottle PO ONE (21:22)
[2020-05-15] MEDS ORDERED: Cephalexin 250 MG Cap PO ONE (21:27)
== END 2020-05-15 21:44 ==
LOC: JP.ED 19:47
DX: R00.1 Bradycardia, unspecified (principal); R55 Syncope and collapse; N30.00 Acute cystitis without hematuria; I10 Essential (primary) hypertension; Z79.82 Long term (current) use of aspirin; Z79.899 Other long term (current) drug therapy
CPT/HCPCS: 36415; 80053; 81001; 84484; 85025; 93005; 99284; A9270